=== PATIENT | male | born 1960 | race Caucasian/White ===

== ENCOUNTER 2021-04-06 10:06 | Day surgery (SDC) | payer MEDICARE, OTHER ==
[2021-04-03 12:12] VITALS: BMI 28.7
[~2021-04-06 10:06] MED LIST: ALPRAZolam 0.25 MG TAB PO PRN; ALPRAZolam 0.5 MG TAB PO PRN; ASPIRIN 325 MG TAB PO STA; ATORVASTATIN 80 MG TAB PO STA; HEPARIN SODIUM,PORCINE 10,000 UNIT in SODIUM CHLORIDE 0.9% 1,000 ML IRRIGATION PRN; HEPARIN SODIUM,PORCINE 2,500 UNIT in SODIUM CHLORIDE 0.9% 250 ML IRRIGATION PRN; NITROGLYCERIN SL TABS 0.4 MG TAB SUBLINGUAL PRN
[2021-04-06] MEDS ORDERED: SODIUM CHLORIDE 0.9% 100 ML IV ONE (10:34)
[2021-04-06 10:50] LABS: Glucose,Whole Blood 159 mg/dL (75-99)
[2021-04-06 10:57] LABS: Basophils # (A) 0.1 k/uL (0-0.2); Basophils % (A) 1 %; Eosinophils # (A) 0.3 k/uL (0-0.7); Eosinophils % (A) 3 %; HCT 48.5 % (39.0-53.0); HGB 17.2 gm/dL (13.0-17.5); Lymphocytes # (A) 3.1 k/uL (1.0-4.8); Lymphocytes % (A) 27 %; MCH 29.5 pg (25.0-35.0); MCHC 35.5 g/dL (31.0-37.0); MCV 83.3 fL (80.0-100.0); Mean Platelet Volume 7.4; Monocytes # (A) 0.8 k/uL (0-1.0); Monocytes % (A) 7 %; Neutrophils % (A) 61 %; Platelet Count 377 k/uL (150-450); RBC 5.82 m/uL (4.30-5.90); RDW 11.8 % (11.5-15.5); WBC 11.4 k/uL (3.8-10.6)
[2021-04-06 11:07] LABS: African American GFR (CKD) >90 (>60 ml/min/1.73 sqM); Anion Gap 10 mmol/L; Blood Urea Nitrogen 13 mg/dL (9-20); Calcium 9.8 mg/dL (8.4-10.2); Carbon Dioxide 24 mmol/L (22-30); Chloride 105 mmol/L (98-107); Glucose 170 mg/dL (74-99); Non-African American GFR(CKD) >90 (>60 ml/min/1.73 sqM); Potassium 4.4 mmol/L (3.5-5.1); Sodium 139 mmol/L (137-145)
[2021-04-06] MEDS ORDERED: LIDOCAINE 1% INJ 10MG/ML (20 ML MDV) ONE (12:34)
[2021-04-06] MEDS ORDERED: fentaNYL (PF) 50 MCG/ML 5 ML AMP IV ONE (13:03)
[2021-04-06] MEDS ORDERED: MIDAZOLAM 2 MG/2 ML VIAL IV ONE (13:03)
[2021-04-06] MEDS ORDERED: LIDOCAINE 1% INJ 10MG/ML (20 ML MDV) SQ ONE (13:06)
[2021-04-06] MEDS ORDERED: IV FLUID CONTINUATION 600 ML IV ONE (13:06)
[2021-04-06] MEDS ORDERED: IOPAMIDOL-370 125ML BTL INJ ONE (13:27)
[2021-04-06] MEDS ORDERED: RX INFO: IV CONTRAST WAS GIVEN 1 EACH MISC MISCELLANE PRN (13:39)
[2021-04-06] MEDS: SODIUM CHLORIDE 0.9% 1,000 ML IV SCH (13:40)
--- NOTE | 2021-04-06 13:49 | P.CARDCATH ---
Date of Procedure: 04/06/21 Postoperative Diagnosis: Progressive angina Procedure(s) Performed: Left heart catheterization with selective coronary arteriography and selective injection of the GOULD graft and 3 vein grafts. No LV gram Description of Procedure: HISTORY: This is a 60-year-old gentleman with history of previous bypass surgery with was quadruple bypass done at [facility]. Patient presents office with complaints of recurrence of chest pain reminiscent of the pains he had prior to the wrist bypass. Nuclear stress test showed a fixed defect in inferior wall. Patient is advised to have a cardiac catheterization for definitive diagnosis CONSENT:I have discussed the risks, benefits and alternative therapies for the above-mentioned procedure and for both sedation/analgesia as well as necessary blood product administration, if indicated, as they pertain to this patient. The patient has indicated understanding and acceptance of the risks and procedures discussed. PROCEDURE: Patient was brought to the lab in a fasting state. Patient was given some IV sedation. The right groin is infiltrated with lidocaine and right femoral artery was entered using Seldinger technique. A 6-Ecuadorean catheter was left in place and selective coronary arteriography and selective injection of the GOULD graft and 3 vein grafts was performed. Patient tolerated the procedure well. Femoral angiogram was performed and manual compression was applied for hemostasis. Angio-Seal was done because of the diffuse disease in the femoral artery. No immediate complications were noted and patient was transferred to [facility] in a stable condition Conscious Sedation: Versed 1mg Fentanyl 50 g Duration 27minutes HEMODYNAMICS: The aortic pressure is about 120/70. Left ventricular end- diastolic pressure was not measured SELECTIVE CORONARY ARTERIOGRAPHY: LEFT MAIN: Normal length and free of any occlusive disease THE LEFT ANTERIOR DESCENDING CORONARY ARTERY:. This is totally occluded after a small diagonal branch THE LEFT CIRCUMFLEX AND IS CORONARY ARTERY:. This is totally occluded in midportion. There is total occlusion of the OM branch also THE RIGHT CORONARY ARTERY:. This is totally occluded in midportion. THE GOULD GRAFT TO THE LAD: This is patent at the proximal and distal anastomosis and throughout its length. The LAD beyond the insertion site shows diffuse plaque without any significant focal lesion. 9 THE VEIN GRAFT TO THE CIRCUMFLEX. This is patent at the proximal and distal anastomosis and also throughout its body. The distal circumflex beyond the insertion of the graft, appears to be free of occlusive disease. The vein graft to the RIGHT CORONARY ARTERY: This is patent at the proximal and distal anastomosis. The distal right coronary artery appears to be small but free of any significant occlusive disease. The vein graft to the INTERMEDIATE OR DIAGONAL: This is totally occluded in the proximal anastomosis site LEFT VENTRICULOGRAPHY This is not performed FINAL IMPRESSION: Patent GOULD graft to the LAD and vein graft to the distal circumflex and also distal right coronary artery. Third vein graft to the to the diagonal or intermediate is totally blocked. PLAN: Continued medical therapy and this factor modification PROGNOSIS: Fair
[2021-04-06] MEDS ORDERED: ACETAMINOPHEN TAB 500 MG TAB PO PRN (16:05)
[2021-04-06] MEDS: INSULIN ASPART (NovoLOG) 100 UNIT/ML VIAL SQ SCH ×3 (16:22→20:56)
[2021-04-06 17:18] LABS: Glucose,Whole Blood 163 mg/dL (75-99)
[2021-04-06] MEDS: SODIUM CHLORIDE 0.9% 1,000 ML in EMPTY BAG 1 BAG IV SCH ×2 (18:04→18:05)
[2021-04-06 20:31] LABS: Glucose,Whole Blood 170 mg/dL (75-99)
[2021-04-06] MEDS ORDERED: traZODone HCL 50 MG TAB PO SCH (21:00)
[2021-04-06] MEDS: BALSALAZIDE DISODIUM 750 MG CAPSULE PO SCH (21:02)
[2021-04-06] MEDS: METOPROLOL TARTRATE 12.5 MG TAB PO SCH (21:02)
[2021-04-07] MEDS: SODIUM CHLORIDE 0.9% 1,000 ML IV SCH (04:16)
[2021-04-07] MEDS: SODIUM CHLORIDE 0.9% 1,000 ML in EMPTY BAG 1 BAG IV SCH (04:21)
[2021-04-07 07:16] VITALS: BP 139/78; PULSE 64; RESP 18; TEMP 97
[2021-04-07 08:12] LABS: Glucose,Whole Blood 155 mg/dL (75-99)
[2021-04-07] MEDS: INSULIN ASPART (NovoLOG) 100 UNIT/ML VIAL SQ SCH (08:22)
[2021-04-07] MEDS: METOPROLOL TARTRATE 12.5 MG TAB PO SCH (08:29)
[2021-04-07] MEDS: BALSALAZIDE DISODIUM 750 MG CAPSULE PO SCH (08:30)
[2021-04-07] MEDS ORDERED: ASPIRIN 81 MG PO SCH (09:00)
[2021-04-07] MEDS ORDERED: lisinopriL 5 MG TAB PO SCH (09:00)
[2021-04-07] MEDS ORDERED: CHOLECALCIFEROL 25 MCG (1000 IU) TABLET PO SCH (09:00)
[2021-04-07] MEDS ORDERED: LINAGLIPTIN 5 MG TABLET PO SCH (09:00)
[2021-04-07] MEDS ORDERED: ISOSORBIDE MONONITRATE ER 30 MG TAB.ER.24H PO SCH (09:00)
[2021-04-07] MEDS ORDERED: ATORVASTATIN 40 MG TAB PO SCH (09:00)
[2021-04-07] MEDS ORDERED: NON FORMULARY DRUG (Omega-3 Fatty Acids/Fish Oil [Fish Oil 1,000 Mg Softgel] 1 EACH Capsul PO SCH (09:00)
== END 2021-04-07 09:06 | disposition home or self-care (01) ==
LOC: CATHCVL 10:06 → 6NMEDSUR 13:31 → CATHCVL 04-07 09:06
PROVIDERS: ATTEND Internal Medicine Cardiovascular Disease
DX: I25.119 Atherosclerotic heart disease of native coronary artery with unspecified angina pectoris (principal); I25.719 Atherosclerosis of autologous vein coronary artery bypass graft(s) with unspecified angina pectoris; I25.82 Chronic total occlusion of coronary artery; I10 Essential (primary) hypertension; F17.210 Nicotine dependence, cigarettes, uncomplicated; E78.5 Hyperlipidemia, unspecified; Z82.49 Family history of ischemic heart disease and other diseases of the circulatory system; Z20.822 Contact with and (suspected) exposure to COVID-19; Z79.899 Other long term (current) drug therapy; Z79.82 Long term (current) use of aspirin
CPT/HCPCS: 93455; 80048; 85025; 87635; C1894; C1769 ×2; J2250; J2001; J3010; Q9967

== ENCOUNTER → 2021-07-03 | Outpatient (CLI) | payer MEDICARE, OTHER | END | disposition home or self-care (01) | LOC: LABWHC1 10:44 | PROVIDERS: ATTEND Orthopaedic Surgery | DX: M25.551 Pain in right hip (principal); Z96.641 Presence of right artificial hip joint; M25.552 Pain in left hip | CPT/HCPCS: 36415; 85379; 85652; 86140 ==

== ENCOUNTER 2021-07-10 08:58 | Day surgery (SDC) | payer MEDICARE, OTHER ==
[2021-07-09 13:35] VITALS: BMI 27.2
[~2021-07-10 08:58] MED LIST changes: -ALPRAZolam 0.25 MG TAB PO PRN; -ALPRAZolam 0.5 MG TAB PO PRN; -ASPIRIN 325 MG TAB PO STA; -ATORVASTATIN 80 MG TAB PO STA; -HEPARIN SODIUM,PORCINE 10,000 UNIT in SODIUM CHLORIDE 0.9% 1,000 ML IRRIGATION PRN; -HEPARIN SODIUM,PORCINE 2,500 UNIT in SODIUM CHLORIDE 0.9% 250 ML IRRIGATION PRN; +LACTATED RINGERS 1,000 ML IV SCH; -NITROGLYCERIN SL TABS 0.4 MG TAB SUBLINGUAL PRN
[2021-07-10 09:39] VITALS: TEMP 97.4
[2021-07-10 09:53] LABS: Glucose,Whole Blood 175 mg/dL (75-99)
[2021-07-10] MEDS ORDERED: PROPOFOL 10 MG/ML 20 ML VIAL IV ONE (10:31)
--- NOTE | 2021-07-10 10:59 | P.PCN ---
Date of Procedure: 07/10/21 Preoperative Diagnosis: Screening for colon cancer History of ulcerative colitis Postoperative Diagnosis: Ulcerative colitis Procedure(s) Performed: Colonoscopy with biopsy Anesthesia: MAC Surgeon: Gisela Hernández Pathology: other (Biopsies of cecum, ascending colon, hepatic flexure, transverse colon, descending colon, sigmoid colon, rectum) Condition: stable Disposition: same day Indications for Procedure: 52-year-old male presents today for screening colonoscopy. His last cholesterol was approximately 3 years ago and he was diagnosed with ulcerative colitis. He does take Asacol as an outpatient for maintenance. Operative Findings: Appearance of active colitis in the sigmoid colon and rectum Description of Procedure: The patient was brought to the endoscopy suite and placed in left lateral decubitus position and adequate sedation was achieved using conscious sedation. A digital rectal exam was performed and mild internal hemorrhoids palpated. An endoscope was then placed in the rectum and advanced to the cecum as identified by landmarks including the appendiceal orifice and the ileocecal valve. The prep was good. The colonoscope was then slowly withdrawn, examining for any mucosal abnormalities. The cecum, ascending, transverse, descending and sigmoid colon were visualized adequately. There were no obvious neoplastic lesions throughout the colon. Inflammatory changes were noted throughout the colon. Biopsies of the cecum, ascending, hepatic flexure, transverse colon, descending colon and sigmoid colon were taken along with the rectum. Most inflammation was noted in the sigmoid colon and rectum. No significant active bleeding. Retroflexion was performed in the rectum and internal hemorrhoids were visible. Excess air was removed, the colonoscope withdrawn and the procedure terminated. The patient was then transferred to the recovery unit in stable condition. Referral will be set for gastroenterology for continued maintenance. Repeat colonoscopy should be performed in 3 years.
[2021-07-10 11:24] VITALS: BP 121/75; PULSE 74; RESP 18
== END 2021-07-10 11:42 | disposition home or self-care (01) ==
LOC: ORWHC2ENDO 08:58
PROVIDERS: ATTEND Surgery
DX: Z12.11 Encounter for screening for malignant neoplasm of colon (principal); K52.9 Noninfective gastroenteritis and colitis, unspecified; K64.8 Other hemorrhoids; Z80.0 Family history of malignant neoplasm of digestive organs; M19.93 Secondary osteoarthritis, unspecified site; E11.9 Type 2 diabetes mellitus without complications; Z96.651 Presence of right artificial knee joint; Z95.1 Presence of aortocoronary bypass graft; Z79.82 Long term (current) use of aspirin; I25.10 Atherosclerotic heart disease of native coronary artery without angina pectoris; I10 Essential (primary) hypertension; E78.5 Hyperlipidemia, unspecified; Z79.4 Long term (current) use of insulin; Z79.899 Other long term (current) drug therapy
CPT/HCPCS: 88305; 45380; J2704

== ENCOUNTER → 2021-07-13 | Outpatient (CLI) | payer MEDICARE, OTHER ==
--- NOTE | 2021-07-13 11:16 | XR ---
EXAMINATION TYPE: XR chest 2V DATE OF EXAM: 07/13/2021 COMPARISON: NONE HISTORY: Shortness of breath TECHNIQUE: Frontal and lateral views of the chest are obtained. FINDINGS: Scattered senescent parenchymal changes noted. Hyperinflation compatible with COPD. No evidence for infiltrate. No evidence for atelectasis. Heart size is stable. Mediastinal structures are stable and grossly unremarkable. No evidence for hilar prominence. Degenerative changes dorsal spine. IMPRESSION: 1. No evidence for acute pulmonary disease.
== END | disposition home or self-care (01) ==
LOC: RADXRMAIN 10:44
PROVIDERS: ATTEND Orthopaedic Surgery Sports Medicine
DX: Z18.10 Retained metal fragments, unspecified (principal)
CPT/HCPCS: 71046

== ENCOUNTER 2021-07-27 12:58 | Day surgery (SDC) | payer MEDICARE, OTHER ==
[2021-07-27 13:22] VITALS: TEMP 97.8
[2021-07-27 15:56] VITALS: RESP 16
[2021-07-27 15:57] VITALS: BP 136/78; PULSE 84
--- NOTE | 2021-07-27 19:07 | US ---
EXAMINATION TYPE: US guided aspiration major joint, right hip Date: 07/27/2021 History: 60-year-old male with history of right total hip arthroplasty in 2014 with new pain since be ginning of this year and elevated inflammatory markers. Procedure: 1. Ultrasound of the right hip 2. Percutaneous aspiration prosthetic right hip joint Technique: The procedure, risks, and alternatives, were discussed with the patient, who requested dillon t we proceed. The consent form was signed, and teach-back occurred. The site/side of the procedure wa s marked with a line with participation by the patient. The accompanying paperwork was verified for c onsistency. A directed history and physical exam was performed prior to the procedure. Medication rec onciliation was performed by ancillary personnel. A critical pause was performed with assisting christ ríos just prior to the procedure and the patient's identity was confirmed using 2 identifiers. Imagin g guidance was utilized to select the precise skin entry point just prior to the procedure. The right hip was prepped and draped in the usual sterile fashion and local 1% lidocaine anesthesia w as instilled. Under ultrasound guidance, an 18 gauge spinal needle was introduced into the prosthetic right hip joint with tip placed at the prosthetic head neck junction. Ultrasound confirmed the posit ion of the needle tip. Aspiration yielded a total of 2 mL clear yellow thick fluid which was capped, labeled, and sent for the requested laboratory analysis. The needle was removed, hemostasis obtained, and a dressing placed. The patient tolerated the procedu re well. A post-procedure note was placed into the medical record. There were no immediate complications. Afte r the procedure, the patient's condition was unchanged. Estimated blood loss was minimal. The patient was instructed on routine postprocedure precautions. IMPRESSION: Successful ultrasound guided prosthetic right hip joint aspiration yielding 2 mL's of syrupy, clear y ellow fluid.
[2021-07-28 05:04] LABS: Appearance,BF Cloudy
== END 2021-07-27 14:45 | disposition home or self-care (01) ==
LOC: RADPROMAIN 12:58
PROVIDERS: ATTEND Orthopaedic Surgery
DX: M25.551 Pain in right hip (principal); Z96.641 Presence of right artificial hip joint
CPT/HCPCS: 20611; 87070; 87075; 87102; 87205; 89050

== ENCOUNTER 2021-09-28 19:12 | Inpatient (IN) | payer MEDICARE, OTHER ==
[2021-09-28] MEDS ORDERED: MORPHINE SULFATE 4 MG/ML SYRINGE IV STA (19:36)
[2021-09-28] MEDS ORDERED: ONDANSETRON 4 MG/2 ML VIAL IVP STA (19:36)
[2021-09-28] MEDS ORDERED: SODIUM CHLORIDE 0.9% 1,000 ML IV ONE ×2 (19:37→22:00)
--- NOTE | 2021-09-28 19:40 | ED ---
Abdominal Pain HPI - General Stated Complaint: abd pain Time Seen by Provider: 09/28/21 19:28 Source: RN notes reviewed - History of Present Illness Initial Comments: This is a pleasant 61-year-old male with history of cardiac disease, diabetes mellitus, hyperlipidemia. Patient also states she has a history of colitis.Patient presents today after waking up from a nap at about 2 PM. Patient states he started having sharp, crampy, intermittent abdominal pain, central abdomen, associated with several episodes of vomiting. No hematemesis or coffee-ground emesis. No changes in bowel movements. Patient does have a history of colitis. He started having any fever. He denies any alcohol intake. He occasionally takes NSAIDs. No chest pain or shortness of breath. No testicular pain. No back pain. Pain is not radiating. There are no alleviating or exacerbating factors. MD Complaint: abdominal pain - Related Data Home Medications Medication Instructions Recorded Confirmed Aspirin [Adult Low Dose Aspirin EC] 81 mg PO DAILY 04/03/21 09/28/21 Atorvastatin [Lipitor] 40 mg PO DAILY 04/03/21 09/28/21 Cholecalciferol [Vitamin D3 (25 25 mcg PO DAILY 04/03/21 09/28/21 Mcg = 1000 Iu)] Sterling-3 Fatty Acids/Fish Oil [Fish 1 cap PO BID 04/03/21 09/28/21 Oil 1,000 mg Softgel] lisinopriL [Zestril] 5 mg PO HS 04/03/21 09/28/21 traZODone HCL 150 mg PO HS 04/03/21 09/28/21 Empagliflozin/Metformin HCl 1 tab PO HS 07/21/21 09/28/21 [Synjardy 12.5-500 mg Tablet] Acetaminophen-Codeine 300-30mg 1 tab PO Q6H PRN 09/28/21 09/28/21 [Tylenol w/codeine #3] Insulin Aspart [NovoLOG Flexpen] See Protocol SQ TID-W/MEALS PRN 09/28/21 09/28/21 Mesalamine 800 mg PO TID 09/28/21 09/28/21 QUEtiapine [SEROquel] 100 mg PO HS 09/28/21 09/28/21 Previous Rx's Medication Instructions Recorded Isosorbide Mononitrate ER [Imdur] 30 mg PO DAILY #30 tab 04/06/21 Allergies Allergy/AdvReac Type Severity Reaction Status Date / Time No Known Allergies Allergy Verified 09/28/21 21:55 Review of Systems ROS Statement: Those systems with pertinent positive or pertinent negative responses have been documented in the HPI. ROS Other: All systems not noted in ROS Statement are negative. Past Medical History Past Medical History: Diabetes Mellitus, Hyperlipidemia, Hypertension Additional Past Medical History / Comment(s): ulcerative colitis History of Any Multi-Drug Resistant Organisms: None Reported Past Surgical History: Coronary Bypass/CABG, Heart Catheterization, Joint Replacement Additional Past Surgical History / Comment(s): quadruple bypass 2016,. rt hip replacement, left Shoulder steriod injections, right hip pain with difficulty walking, pain radiates to back Past Anesthesia/Blood Transfusion Reactions: No Reported Reaction, Motion Sickness Past Psychological History: No Psychological Hx Reported Smoking Status: Former smoker Past Alcohol Use History: None Reported Past Drug Use History: None Reported - Past Family History Mother Family Medical History: Osteoarthritis (OA) General Exam - General Exam Comments Initial Comments: Vital signs reviewed, patient noted to be tachycardic. Capillary refill less than 2 seconds General appearance: in distress Head exam: Present: atraumatic, normocephalic, normal inspection Eye exam: Present: normal appearance, PERRL, EOMI. Absent: scleral icterus, conjunctival injection, periorbital swelling ENT exam: Present: normal exam, normal oropharynx, mucous membranes moist, normal external ear exam. Absent: mucous membranes dry Neck exam: Present: normal inspection, full ROM. Absent: tenderness, meningismus, lymphadenopathy Respiratory exam: Present: normal lung sounds bilaterally. Absent: respiratory distress, wheezes, rales, rhonchi, stridor Cardiovascular Exam: Present: normal rhythm, tachycardia, normal heart sounds. Absent: systolic murmur, diastolic murmur, rubs, gallop, clicks GI/Abdominal exam: Present: distended, tenderness, guarding, normal bowel sounds, other (Patient has mild distention. Generalized tenderness to palpation. There is guarding.). Absent: rebound, rigid Extremities exam: Present: normal inspection, full ROM, normal capillary refill. Absent: tenderness, pedal edema, joint swelling, calf tenderness Back exam: Present: normal inspection Neurological exam: Present: alert, oriented X3, CN II-XII intact Psychiatric exam: Present: normal affect, normal mood Skin exam: Present: warm, dry, intact, normal color. Absent: rash Course Vital Signs 09/28/21 09/28/21 09/29/21 19:31 23:58 06:15 Temperature 98.1 F 98.4 F Pulse Rate 130 H 84 88 Respiratory 20 18 18 Rate Blood Pressure 131/81 108/80 116/68 O2 Sat by Pulse 98 98 98 Oximetry - Reevaluation(s) Reevaluation #1: 09/28/21 21:17 Medical record is reviewed Symptoms minimally better after pain medication. Patient is informed of results and questions answered Patient in no distress The case was discussed in detail with ED attending physician. Presentation, findings, treatment plan discussed in detail. Plan to cover the patient with Zosyn based on his initial laboratory findings, elevated white blood cell count, elevated neutrophil count, hemoconcentration, and lactic acid of 4.3. - Consultations Consultation #1: Patient admitted to Dr. cantu. Discussed case with Dr. Fraga Procedures - Sepsis Sepsis Focused Exam #1 Time Sepsis Criteria Met: 20:46 Sepsis Focused Exam Date: 09/28/21 Sepsis Focused Exam Time: 20:46 Sepsis Focused Exam Complete: Yes Vital Signs & RN Notes Reviewed: Yes Capillary Refill: < 2 Seconds: Fingers, Toes Peripheral Pulses: Strong: Radial (R), Radial (L), Posterior Tibialis (R), Posterior Tibialis (L), Dorsalis Pedis (R), Dorsalis Pedis (L) Skin Color: Normal for Patient Respiratory Exam: normal lung sounds Cardiovascular Exam: regular rate Medical Decision Making - Medical Decision Making She presents with abdominal pain, started after 2 PM. Several episodes of vomiting. Significant pain with tachycardia. Differential would include small bowel obstruction, bowel perforation, less likely to be infectious etiology given the onset. Does not appear to be consistent with vascular etiology. Not consistent with a cardiovascular etiology. Does not appear to be urinogenital in nature. Patient was admitted to medicine with surgical consultation. Discussed the case with the on-call surgeon. Bleeding lactic acid is related to dehydration with only remote possibility of sepsis. Patient did receive antibiotics, Zosyn, here in the ER. Computed tomography scan was negative for acute pathology. This was also reviewed by the on-call surgeon. The case was discussed in detail with ED attending physician. Presentation, findings, treatment plan discussed in detail. Supervising physician is Dr. Nelson - Lab Data Result diagrams: 09/29/21 05:51 09/29/21 05:51 Lab Results 09/28/21 09/28/21 09/28/21 Range/Units 14:20 20:08 20:08 WBC 15.8 H (3.8-10.6) k/uL RBC 6.86 H (4.30-5.90) m/uL Hgb 19.3 H* (13.0-17.5) gm/dL Hct 58.6 H* (39.0-53.0) % MCV 85.5 (80.0-100.0) fL MCH 28.1 (25.0-35.0) pg MCHC 32.9 (31.0-37.0) g/dL RDW 14.4 (11.5-15.5) % Plt Count 344 (150-450) k/uL MPV 8.1 Neutrophils % 83 % Lymphocytes % 8 % Monocytes % 7 % Eosinophils % 1 % Basophils % 1 % Neutrophils # 13.1 H (1.3-7.7) k/uL Lymphocytes # 1.2 (1.0-4.8) k/uL Monocytes # 1.0 (0-1.0) k/uL Eosinophils # 0.2 (0-0.7) k/uL Basophils # 0.1 (0-0.2) k/uL PT 10.6 (9.0-12.0) sec INR 1.0 (<1.2) APTT 22.9 (22.0-30.0) sec Sodium (137-145) mmol/L Potassium (3.5-5.1) mmol/L Chloride (98-107) mmol/L Carbon Dioxide (22-30) mmol/L Anion Gap mmol/L BUN (9-20) mg/dL Creatinine (0.66-1.25) mg/dL Est GFR (CKD-EPI)AfAm (>60 ml/min/1.73 sqM) Est GFR (CKD-EPI)NonAf (>60 ml/min/1.73 sqM) Glucose (74-99) mg/dL Lactic Ac Sepsis Rflx Plasma Lactic Acid Edward (0.7-2.0) mmol/L Calcium (8.4-10.2) mg/dL Total Bilirubin (0.2-1.3) mg/dL AST (17-59) U/L ALT (4-49) U/L Alkaline Phosphatase (38-126) U/L Troponin I (0.000-0.034) ng/mL Total Protein (6.3-8.2) g/dL Albumin (3.5-5.0) g/dL Amylase (30-110) U/L Lipase (23-300) U/L Urine Color Yellow Urine Appearance Clear (Clear) Urine pH 5.0 (5.0-8.0) Ur Specific [place] 1.039 H (1.001-1.035) Urine Protein Negative (Negative) Urine Glucose (UA) 4+ H (Negative) Urine Ketones 1+ H (Negative) Urine Blood Negative (Negative) Urine Nitrite Negative (Negative) Urine Bilirubin Negative (Negative) Urine Urobilinogen <2.0 (<2.0) mg/dL Ur Leukocyte Esterase Negative (Negative) 09/28/21 09/28/21 09/28/21 Range/Units 20:08 20:08 20:08 WBC (3.8-10.6) k/uL RBC (4.30-5.90) m/uL Hgb (13.0-17.5) gm/dL Hct (39.0-53.0) % MCV (80.0-100.0) fL MCH (25.0-35.0) pg MCHC (31.0-37.0) g/dL RDW (11.5-15.5) % Plt Count (150-450) k/uL MPV Neutrophils % % Lymphocytes % % Monocytes % % Eosinophils % % Basophils % % Neutrophils # (1.3-7.7) k/uL Lymphocytes # (1.0-4.8) k/uL Monocytes # (0-1.0) k/uL Eosinophils # (0-0.7) k/uL Basophils # (0-0.2) k/uL PT (9.0-12.0) sec INR (<1.2) APTT (22.0-30.0) sec Sodium 142 (137-145) mmol/L Potassium 4.3 (3.5-5.1) mmol/L Chloride 99 (98-107) mmol/L Carbon Dioxide 24 (22-30) mmol/L Anion Gap 19 mmol/L BUN 17 (9-20) mg/dL Creatinine 1.18 (0.66-1.25) mg/dL Est GFR (CKD-EPI)AfAm 78 (>60 ml/min/1.73 sqM) Est GFR (CKD-EPI)NonAf 67 (>60 ml/min/1.73 sqM) Glucose 213 H (74-99) mg/dL Lactic Ac Sepsis Rflx Plasma Lactic Acid Edward 4.3 H* (0.7-2.0) mmol/L Calcium 10.5 H (8.4-10.2) mg/dL Total Bilirubin 1.0 (0.2-1.3) mg/dL AST 36 (17-59) U/L ALT 27 (4-49) U/L Alkaline Phosphatase 142 H (38-126) U/L Troponin I <0.012 (0.000-0.034) ng/mL Total Protein 8.4 H (6.3-8.2) g/dL Albumin 5.3 H (3.5-5.0) g/dL Amylase 65 (30-110) U/L Lipase 95 (23-300) U/L Urine Color Urine Appearance (Clear) Urine pH (5.0-8.0) Ur Specific [place] (1.001-1.035) Urine Protein (Negative) Urine Glucose (UA) (Negative) Urine Ketones (Negative) Urine Blood (Negative) Urine Nitrite (Negative) Urine Bilirubin (Negative) Urine Urobilinogen (<2.0) mg/dL Ur Leukocyte Esterase (Negative) 09/28/21 Range/Units 20:47 WBC (3.8-10.6) k/uL RBC (4.30-5.90) m/uL Hgb (13.0-17.5) gm/dL Hct (39.0-53.0) % MCV (80.0-100.0) fL MCH (25.0-35.0) pg MCHC (31.0-37.0) g/dL RDW (11.5-15.5) % Plt Count (150-450) k/uL MPV Neutrophils % % Lymphocytes % % Monocytes % % Eosinophils % % Basophils % % Neutrophils # (1.3-7.7) k/uL Lymphocytes # (1.0-4.8) k/uL Monocytes # (0-1.0) k/uL Eosinophils # (0-0.7) k/uL Basophils # (0-0.2) k/uL PT (9.0-12.0) sec INR (<1.2) APTT (22.0-30.0) sec Sodium (137-145) mmol/L Potassium (3.5-5.1) mmol/L Chloride (98-107) mmol/L Carbon Dioxide (22-30) mmol/L Anion Gap mmol/L BUN (9-20) mg/dL Creatinine (0.66-1.25) mg/dL Est GFR (CKD-EPI)AfAm (>60 ml/min/1.73 sqM) Est GFR (CKD-EPI)NonAf (>60 ml/min/1.73 sqM) Glucose (74-99) mg/dL Lactic Ac Sepsis Rflx Y Plasma Lactic Acid Edward (0.7-2.0) mmol/L Calcium (8.4-10.2) mg/dL Total Bilirubin (0.2-1.3) mg/dL AST (17-59) U/L ALT (4-49) U/L Alkaline Phosphatase (38-126) U/L Troponin I (0.000-0.034) ng/mL Total Protein (6.3-8.2) g/dL Albumin (3.5-5.0) g/dL Amylase (30-110) U/L Lipase (23-300) U/L Urine Color Urine Appearance (Clear) Urine pH (5.0-8.0) Ur Specific [place] (1.001-1.035) Urine Protein (Negative) Urine Glucose (UA) (Negative) Urine Ketones (Negative) Urine Blood (Negative) Urine Nitrite (Negative) Urine Bilirubin (Negative) Urine Urobilinogen (<2.0) mg/dL Ur Leukocyte Esterase (Negative) - EKG Data EKG Comments: EKG done at 2100 and reviewed with ED attending physician does mention ST elevation in the computerized interpretation. However does not appear to be consistent with this. Patient does have what appears to be negative deflection of the CO interval, noted in lead 2 and to lesser strength in lead 3. No other significant changes. Patient does have RSR pattern in V1. Normal axis. Rate of 106. No evidence of acute ST elevation or depression. Read by Dr. Nelson Critical Care Time Critical Care Time: Yes (35) Critical Care Time: Criteria for severe sepsis, severe dehydration, hemoconcentration, discussed with specialist. Reevaluation of present mentation and response to treatment. Evaluation diagnostic testing. Disposition Clinical Impression: Abdominal pain, Severe sepsis, Severe dehydration, Lactic acidosis Disposition: ADMITTED IP TO THIS [facility] Condition: Fair Time of Disposition: 22:06 Decision to Admit Reason: Admit from EC Decision Time: 22:06
--- NOTE | 2021-09-28 20:06 | XR ---
EXAMINATION TYPE: XR chest 1V portable DATE OF EXAM: 09/28/2021 COMPARISON: 07/13/2021 HISTORY: Abdominal pain TECHNIQUE: Single view FINDINGS: There is no heart failure nor confluent pneumonic infiltrate. There are sternal wires. Cost ophrenic angles are clear. There is slight coarsening of the lung markings. IMPRESSION: Mild pulmonary fibrotic changes. No acute lung disease. No change compared to old exam.
[2021-09-28 20:34] LABS: Albumin 5.3 g/dL (3.5-5.0); Calcium 10.5 mg/dL (8.4-10.2); Potassium 4.3 mmol/L (3.5-5.1); Total Protein 8.4 g/dL (6.3-8.2)
[2021-09-28 20:55] LABS: Partial Thromboplastin Time 22.9 sec (22.0-30.0); Prothrombin Time 10.6 sec (9.0-12.0)
[2021-09-28 21:03] LABS: Basophils # (A) 0.1 k/uL (0-0.2); Basophils % (A) 1 %; Eosinophils # (A) 0.2 k/uL (0-0.7); Eosinophils % (A) 1 %; Lymphocytes # (A) 1.2 k/uL (1.0-4.8); Lymphocytes % (A) 8 %; MCH 28.1 pg (25.0-35.0); MCHC 32.9 g/dL (31.0-37.0); MCV 85.5 fL (80.0-100.0); Mean Platelet Volume 8.1; Monocytes % (A) 7 %; Neutrophils # (A) 13.1 k/uL (1.3-7.7); Neutrophils % (A) 83 %; Platelet Count 344 k/uL (150-450); RBC 6.86 m/uL (4.30-5.90); RDW 14.4 % (11.5-15.5); WBC 15.8 k/uL (3.8-10.6)
[2021-09-28 21:06] LABS: HCT 58.6 % (39.0-53.0); HGB 19.3 gm/dL (13.0-17.5)
[2021-09-28] MEDS ORDERED: PIPERACILLIN-TAZOBACTAM 4.5 GM in SODIUM CHLORIDE 0.9% 100 ML IVPB STA (21:12)
[2021-09-28] MEDS ORDERED: MORPHINE SULFATE 4 MG/ML SYRINGE IVP STA (21:50)
--- NOTE | 2021-09-28 21:57 | CT ---
EXAMINATION TYPE: CT abdomen pelvis w con DATE OF EXAM: 09/28/2021 COMPARISON: None HISTORY: Abdominal pain, N/V CT DLP: 1222.7 mGycm Automated exposure control for dose reduction was used. CONTRAST: Performed with IV Contrast, patient injected with 100 mL of Isovue 300. Images obtained from the diaphragm to the floor the pelvis with IV contrast. There is some mild atelectasis at the lung bases. Heart size is normal. No pericardial effusion. No p leural effusion or pneumothorax. Liver spleen pancreas and stomach and gallbladder appear intact. The bile ducts are not dilated. There is no adrenal mass. Kidneys show satisfactory contrast opacification. There is no hydronephrosi s. Delayed images show normal renal excretion. There is no retroperitoneal adenopathy. The bladder di stends smoothly. There is right hip prosthesis. No pelvic mass. No free fluid in the pelvis. Appendix not seen. No sign of thickened appendix. There is no mesenteric edema. No ascites or free air. No bowel obstruction. The lumbar vertebrae have normal alignment. No compression fracture. There is moderate atherosclerotic vascular calcification. The bony pelvis is intact. No focal bone destruction. IMPRESSION: Extensive atherosclerotic vascular calcification for the patient's age. No acute abnormality of the a bdomen and pelvis.
[2021-09-28] MEDS ORDERED: ONDANSETRON 4 MG/2 ML VIAL IVP PRN (22:47)
[2021-09-28] MEDS ORDERED: NALOXONE 0.4 MG/ML 1 ML VIAL IV PRN (22:47)
[2021-09-28] MEDS ORDERED: ACETAMINOPHEN TAB 325 MG TAB PO PRN (22:47)
[2021-09-28] MEDS ORDERED: QUEtiapine 100 MG TAB PO STA (22:51)
[2021-09-28] MEDS: PANTOPRAZOLE 40 MG/10 ML VIAL IV SCH (23:39)
[2021-09-29] MEDS: SODIUM CHLORIDE 0.9% 1,000 ML IV SCH ×3 (00:01→20:18)
[2021-09-29] MEDS: HEPARIN SODIUM,PORCINE/PF 5,000 UNIT/0.5 ML SYRINGE SQ SCH ×4 (00:30→23:48)
[2021-09-29 06:38] LABS: Basophils % (A) 0 %; Eosinophils # (A) 0.1 k/uL (0-0.7); Eosinophils % (A) 1 %; HCT 45.1 % (39.0-53.0); Lymphocytes # (A) 1.5 k/uL (1.0-4.8); Lymphocytes % (A) 17 %; MCH 27.9 pg (25.0-35.0); MCHC 32.6 g/dL (31.0-37.0); MCV 85.6 fL (80.0-100.0); Mean Platelet Volume 7.7; Monocytes # (A) 0.9 k/uL (0-1.0); Monocytes % (A) 11 %; Neutrophils # (A) 5.8 k/uL (1.3-7.7); Neutrophils % (A) 68 %; Platelet Count 255 k/uL (150-450); RBC 5.26 m/uL (4.30-5.90); RDW 14.6 % (11.5-15.5); WBC 8.5 k/uL (3.8-10.6)
[2021-09-29 06:40] LABS: ALT 17 U/L (4-49); AST 21 U/L (17-59); African American GFR (CKD) >90 (>60 ml/min/1.73 sqM); Albumin 3.2 g/dL (3.5-5.0); Alkaline Phosphatase 81 U/L (38-126); Anion Gap 6 mmol/L; Blood Urea Nitrogen 17 mg/dL (9-20); Calcium 8.1 mg/dL (8.4-10.2); Carbon Dioxide 24 mmol/L (22-30); Chloride 108 mmol/L (98-107); Glucose 107 mg/dL (74-99); Lipase 26 U/L (23-300); Non-African American GFR(CKD) >90 (>60 ml/min/1.73 sqM); Potassium 4.3 mmol/L (3.5-5.1); Sodium 138 mmol/L (137-145); Total Bilirubin 0.8 mg/dL (0.2-1.3); Total Protein 5.3 g/dL (6.3-8.2)
[2021-09-29 06:46] LABS: HGB 14.7 gm/dL (13.0-17.5)
[2021-09-29] MEDS ORDERED: PROMETHAZINE 25 MG TAB PO PRN (07:59)
[2021-09-29 08:09] LABS: Glucose,Whole Blood 105 mg/dL (75-99)
[2021-09-29] MEDS: ISOSORBIDE MONONITRATE ER 30 MG TAB.ER.24H PO SCH (08:32)
[2021-09-29] MEDS: ATORVASTATIN 40 MG TAB PO SCH (08:32)
[2021-09-29] MEDS: BALSALAZIDE DISODIUM 750 MG CAPSULE PO SCH ×3 (08:33→21:37)
[2021-09-29] MEDS: PANTOPRAZOLE 40 MG/10 ML VIAL IV SCH (08:33)
[2021-09-29] MEDS: ASPIRIN 81 MG PO SCH (08:33)
[2021-09-29] MEDS: PIPERACILLIN-TAZOBACTAM 3.375 GM in SODIUM CHLORIDE 0.9% 100 ML IVPB SCH ×3 (08:34→23:45)
[2021-09-29] MEDS: INSULIN ASPART (NovoLOG) 100 UNIT/ML VIAL SQ SCH ×4 (08:34→20:57)
--- NOTE | 2021-09-29 11:34 | P.HPIM ---
History of Present Illness This is a pleasant 61 years old male with past medical history of Diabetes Mellitus, Hyperlipidemia, Hypertension, ulcerative colitis, coronary artery disease status post CABG Patient presents because of right lower quadrant abdominal pain of one-day duration, 10 was 10/10 in severity but now improved down to 4-5/10, felt like sharp and throbbing associated with multiple vomiting, no blood which is stopped now. Last time was last night. He had little bowel movement yesterday, basically it's more sore the constipation side. Patient denies chest pain or dyspnea. No dysuria or increased frequency/urgency. She has little headache but no dizziness or weakness or numbness. He smokes few cigarettes occasionally as he states. Patient is counseled. He is declining nicotine patch. No alcohol or illicit tracts. Patient supposed to follow up with orthopedic for scheduled left shoulder surgery on Sunday 10/29. Vitas looks stable. Repeat labs this morning show an unremarkable and normal CBC, INR, BMP and liver enzymes. Lipase as 26. Elevated lactic acid on admission improved to normal at 1.2. EKG showing sinus tachycardia at 106, no significant ST-T changes. QTC 403. Chest x-ray: Mild pulmonary fibrotic changes. No acute pulmonary process. CT of the abdomen and pelvis: Extensive atherosclerotic vascular calcification for the patient's age. No acute abnormality of the abdomen and pelvis. On admission patient was started on normal saline, Zosyn. Also she was started on a Protonix and pain management Check ESR and CRP and they were normal ESR 8 and slightly elevated CRP at 8.7. Review of Systems CONSTITUTIONAL: No fever, no malaise, no fatigue. HEENT: No recent visual problems or hearing problems. Denied any sore throat. CARDIOVASCULAR: No orthopnea, PND, no palpitations, no syncope. PULMONARY: No shortness of breath, no cough, no hemoptysis. GASTROINTESTINAL: No diarrhea, no nausea, no vomiting, no abdominal pain. Normoactive bowel sounds. NEUROLOGICAL: No headaches, no weakness, no numbness. HEMATOLOGICAL: Denies any bleeding or petechiae. GENITOURINARY: Denies any burning micturition, frequency, or urgency. MUSCULOSKELETAL/RHEUMATOLOGICAL: Denies any joint pain, swelling, or any muscle pain. ENDOCRINE: Denies any polyuria or polydipsia. Past Medical History Past Medical History: Diabetes Mellitus, Hyperlipidemia, Hypertension Additional Past Medical History / Comment(s): ulcerative colitis History of Any Multi-Drug Resistant Organisms: None Reported Past Surgical History: Coronary Bypass/CABG, Heart Catheterization, Joint Replacement Additional Past Surgical History / Comment(s): quadruple bypass 2016,. rt hip replacement, left Shoulder steriod injections, right hip pain with difficulty walking, pain radiates to back Past Anesthesia/Blood Transfusion Reactions: No Reported Reaction, Motion Sickness Past Psychological History: No Psychological Hx Reported Smoking Status: Former smoker Past Alcohol Use History: None Reported Past Drug Use History: None Reported - Past Family History Mother Family Medical History: Osteoarthritis (OA) Medications and Allergies Home Medications Medication Instructions Recorded Confirmed Type Aspirin [Adult Low Dose Aspirin EC] 81 mg PO DAILY 04/03/21 09/28/21 History Atorvastatin [Lipitor] 40 mg PO DAILY 04/03/21 09/28/21 History Cholecalciferol [Vitamin D3 (25 25 mcg PO DAILY 04/03/21 09/28/21 History Mcg = 1000 Iu)] [place]-3 Fatty Acids/Fish Oil [Fish 1 cap PO BID 04/03/21 09/28/21 History Oil 1,000 mg Softgel] lisinopriL [Zestril] 5 mg PO HS 04/03/21 09/28/21 History traZODone HCL 150 mg PO HS 04/03/21 09/28/21 History Isosorbide Mononitrate ER [Imdur] 30 mg PO DAILY #30 tab 04/06/21 09/28/21 Rx Empagliflozin/Metformin HCl 1 tab PO HS 07/21/21 09/28/21 History [Synjardy 12.5-500 mg Tablet] Acetaminophen-Codeine 300-30mg 1 tab PO Q6H PRN 09/28/21 09/28/21 History [Tylenol w/codeine #3] Insulin Aspart [NovoLOG Flexpen] See Protocol SQ TID-W/MEALS PRN 09/28/21 09/28/21 History Mesalamine 800 mg PO TID 09/28/21 09/28/21 History QUEtiapine [SEROquel] 100 mg PO HS 09/28/21 09/28/21 History Allergies Allergy/AdvReac Type Severity Reaction Status Date / Time No Known Allergies Allergy Verified 09/28/21 21:55 Physical Exam Vitals: Vital Signs Temp Pulse Resp BP Pulse Ox 09/29/21 06:15 88 18 116/68 98 09/28/21 23:58 98.4 F 84 18 108/80 98 09/28/21 19:31 98.1 F 130 H 20 131/81 98 Intake and Output 09/28/21 09/29/21 09/29/21 22:59 06:59 14:59 Other: Weight 81.647 kg GENERAL: The patient is alert and oriented x3, not in any acute distress. Well developed, well nourished. HEENT: Pupils are round and equally reacting to light. EOMI. No scleral icterus. No conjunctival pallor. Normocephalic, atraumatic. No pharyngeal erythema. No thyromegaly. CARDIOVASCULAR: S1 and S2 present. No murmurs, rubs, or gallops. PULMONARY: Chest is clear to auscultation, no wheezing or crackles. -ABDOMEN: Soft, tenderness right to the umbilicus, no rebound tenderness, nondistended, normoactive bowel sounds. No palpable organomegaly. MUSCULOSKELETAL: No joint swelling or deformity. EXTREMITIES: No cyanosis, clubbing, or pedal edema. NEUROLOGICAL: Gross neurological examination did not reveal any focal deficits. SKIN: No rashes. No petechiae Results CBC & Chem 7: 09/29/21 05:51 09/29/21 05:51 Labs: Abnormal Lab Results - Last 24 Hours (Table) 09/28/21 09/28/21 09/28/21 Range/Units 20:08 20:08 20:08 WBC 15.8 H (3.8-10.6) k/uL RBC 6.86 H (4.30-5.90) m/uL Hgb 19.3 H* (13.0-17.5) gm/dL Hct 58.6 H* (39.0-53.0) % Neutrophils # 13.1 H (1.3-7.7) k/uL Chloride (98-107) mmol/L Glucose 213 H (74-99) mg/dL Plasma Lactic Acid Edward 4.3 H* (0.7-2.0) mmol/L Calcium 10.5 H (8.4-10.2) mg/dL Alkaline Phosphatase 142 H (38-126) U/L Total Protein 8.4 H (6.3-8.2) g/dL Albumin 5.3 H (3.5-5.0) g/dL 09/29/21 Range/Units 05:51 WBC (3.8-10.6) k/uL RBC (4.30-5.90) m/uL Hgb (13.0-17.5) gm/dL Hct (39.0-53.0) % Neutrophils # (1.3-7.7) k/uL Chloride 108 H (98-107) mmol/L Glucose 107 H (74-99) mg/dL Plasma Lactic Acid Edward (0.7-2.0) mmol/L Calcium 8.1 L (8.4-10.2) mg/dL Alkaline Phosphatase (38-126) U/L Total Protein 5.3 L (6.3-8.2) g/dL Albumin 3.2 L (3.5-5.0) g/dL Assessment and Plan Assessment: Abdominal pain History of ulcerative colitis Shoulder pain supposed to undergo surgery on Tuesday Hyperlipidemia Hypertension Diabetes mellitus History of coronary artery disease status post CABG Plan: This is a pleasant 61 years old male who presents with abdominal pain Check pro-calcitonin Surgery team consulted, and follow the recommendation Continue with liquid diet There is no GI team coverage in this facility during this week of service Labs and medication were reviewed.. Continue same treatment. Continue with symptomatic treatment. Resume home medication. Monitor lytes and vitals. DVT and GI prophylaxis. Further recommendations depends on the clinical course of the patient DVT prophylaxis: Subcutaneous heparin GI Prophylaxis: Pepcid PT/OT: Pending Prognosis is guarded
[2021-09-29 13:41] LABS: Glucose,Whole Blood 98 mg/dL (75-99)
[2021-09-29 14:28] LABS: Appearance,Urine Clear (Clear); Bilirubin,Urine Negative (Negative); Blood,Urine Negative (Negative); Color,Urine Yellow; Glucose,Urine (UA) 4+ (Negative); Ketones,Urine 1+ (Negative); Leukocyte Esterase,Urine Negative (Negative); Nitrite,Urine Negative (Negative); Protein,Urine Negative (Negative); Specific Gravity,Urine 1.039 (1.001-1.035); Urobilinogen,Urine <2.0 mg/dL (<2.0)
--- NOTE | 2021-09-29 15:18 | P.GSCN ---
History of Present Illness Consult date: 09/29/21 Reason for Consult: Abdominal pain History of present illness: The patient is a 61-year-old man who presented with acute abdominal pain. It began yesterday. It was sudden onset. Sharp mid abdominal pain. He had some nausea but no vomiting. Bowels have been moving normally. He does have a history of ulcerative colitis but that has not been bothering him lately. Denies blood in the stool or dark tarry stool. Denies fever or chill. Denies recent COVID-19 infection. He was camping over the weekend and no one else was ill. The pain has since resolved. He had clear liquids for lunch which he is tolerating Review of Systems All systems: negative Past Medical History Past Medical History: Diabetes Mellitus, Hyperlipidemia, Hypertension Additional Past Medical History / Comment(s): ulcerative colitis History of Any Multi-Drug Resistant Organisms: None Reported Past Surgical History: Coronary Bypass/CABG, Heart Catheterization, Joint Replacement Additional Past Surgical History / Comment(s): quadruple bypass 2016,. rt hip replacement, left Shoulder steriod injections, right hip pain with difficulty walking, pain radiates to back Past Anesthesia/Blood Transfusion Reactions: No Reported Reaction, Motion Sick ness Past Psychological History: No Psychological Hx Reported Smoking Status: Former smoker Past Alcohol Use History: None Reported Past Drug Use History: None Reported - Past Family History Mother Family Medical History: Osteoarthritis (OA) Medications and Allergies Home Medications Medication Instructions Recorded Confirmed Type Aspirin [Adult Low Dose Aspirin EC] 81 mg PO DAILY 04/03/21 09/28/21 History Atorvastatin [Lipitor] 40 mg PO DAILY 04/03/21 09/28/21 History Cholecalciferol [Vitamin D3 (25 25 mcg PO DAILY 04/03/21 09/28/21 History Mcg = 1000 Iu)] [place]-3 Fatty Acids/Fish Oil [Fish 1 cap PO BID 04/03/21 09/28/21 History Oil 1,000 mg Softgel] lisinopriL [Zestril] 5 mg PO HS 04/03/21 09/28/21 History traZODone HCL 150 mg PO HS 04/03/21 09/28/21 History Isosorbide Mononitrate ER [Imdur] 30 mg PO DAILY #30 tab 04/06/21 09/28/21 Rx Empagliflozin/Metformin HCl 1 tab PO HS 07/21/21 09/28/21 History [Synjardy 12.5-500 mg Tablet] Acetaminophen-Codeine 300-30mg 1 tab PO Q6H PRN 09/28/21 09/28/21 History [Tylenol w/codeine #3] Insulin Aspart [NovoLOG Flexpen] See Protocol SQ TID-W/MEALS PRN 09/28/21 09/28/21 History Mesalamine 800 mg PO TID 09/28/21 09/28/21 History QUEtiapine [SEROquel] 100 mg PO HS 09/28/21 09/28/21 History Allergies Allergy/AdvReac Type Severity Reaction Status Date / Time No Known Allergies Allergy Verified 09/28/21 21:55 Surgical - Exam Osteopathic Statement: *. No significant issues noted on an osteopathic structural exam other than those noted in the History and Physical/Consult. Vital Signs Temp Pulse Resp BP Pulse Ox 98.1 F 130 H 20 131/81 98 09/28/21 19:31 09/28/21 19:31 09/28/21 19:31 09/28/21 19:31 09/28/21 19:31 - General well developed, well nourished - Eyes normal ocular movement - Neck trachea midline - Respiratory normal respiratory effort, clear to auscultation - Cardiovascular Rhythm: regular - Abdomen Abdomen: soft, non tender, bowel sounds, no guarding, no rigid, no rebound, no distended Results - Labs 09/29/21 05:51 09/29/21 05:51 Abnormal Lab Results - Last 24 Hours (Table) 09/28/21 09/28/21 09/28/21 Range/Units 14:20 20:08 20:08 WBC 15.8 H (3.8-10.6) k/uL RBC 6.86 H (4.30-5.90) m/uL Hgb 19.3 H* (13.0-17.5) gm/dL Hct 58.6 H* (39.0-53.0) % Neutrophils # 13.1 H (1.3-7.7) k/uL Chloride (98-107) mmol/L Glucose 213 H (74-99) mg/dL POC Glucose (mg/dL) (75-99) mg/dL Plasma Lactic Acid Edward (0.7-2.0) mmol/L Calcium 10.5 H (8.4-10.2) mg/dL Alkaline Phosphatase 142 H (38-126) U/L C-Reactive Protein (<1.0) mg/dL Total Protein 8.4 H (6.3-8.2) g/dL Albumin 5.3 H (3.5-5.0) g/dL Procalcitonin (0.02-0.09) ng/mL Ur Specific [place] 1.039 H (1.001-1.035) Urine Glucose (UA) 4+ H (Negative) Urine Ketones 1+ H (Negative) 09/28/21 09/29/21 09/29/21 Range/Units 20:08 05:51 08:03 WBC (3.8-10.6) k/uL RBC (4.30-5.90) m/uL Hgb (13.0-17.5) gm/dL Hct (39.0-53.0) % Neutrophils # (1.3-7.7) k/uL Chloride 108 H (98-107) mmol/L Glucose 107 H (74-99) mg/dL POC Glucose (mg/dL) 105 H (75-99) mg/dL Plasma Lactic Acid Edward 4.3 H* (0.7-2.0) mmol/L Calcium 8.1 L (8.4-10.2) mg/dL Alkaline Phosphatase (38-126) U/L C-Reactive Protein (<1.0) mg/dL Total Protein 5.3 L (6.3-8.2) g/dL Albumin 3.2 L (3.5-5.0) g/dL Procalcitonin (0.02-0.09) ng/mL Ur Specific [place] (1.001-1.035) Urine Glucose (UA) (Negative) Urine Ketones (Negative) 09/29/21 09/29/21 Range/Units 08:31 08:31 WBC (3.8-10.6) k/uL RBC (4.30-5.90) m/uL Hgb (13.0-17.5) gm/dL Hct (39.0-53.0) % Neutrophils # (1.3-7.7) k/uL Chloride (98-107) mmol/L Glucose (74-99) mg/dL POC Glucose (mg/dL) (75-99) mg/dL Plasma Lactic Acid Edward (0.7-2.0) mmol/L Calcium (8.4-10.2) mg/dL Alkaline Phosphatase (38-126) U/L C-Reactive Protein 8.7 H (<1.0) mg/dL Total Protein (6.3-8.2) g/dL Albumin (3.5-5.0) g/dL Procalcitonin 8.49 H (0.02-0.09) ng/mL Ur Specific [place] (1.001-1.035) Urine Glucose (UA) (Negative) Urine Ketones (Negative) Diabetes panel 09/28/21 09/29/21 Range/Units 20:08 05:51 Sodium 142 138 (137-145) mmol/L Potassium 4.3 4.3 (3.5-5.1) mmol/L Chloride 99 108 H (98-107) mmol/L Carbon Dioxide 24 24 (22-30) mmol/L BUN 17 17 (9-20) mg/dL Creatinine 1.18 0.79 (0.66-1.25) mg/dL Glucose 213 H 107 H (74-99) mg/dL Calcium 10.5 H 8.1 L (8.4-10.2) mg/dL AST 36 21 (17-59) U/L ALT 27 17 (4-49) U/L Alkaline Phosphatase 142 H 81 (38-126) U/L Total Protein 8.4 H 5.3 L (6.3-8.2) g/dL Albumin 5.3 H 3.2 L (3.5-5.0) g/dL Calcium panel 09/28/21 09/29/21 Range/Units 20:08 05:51 Calcium 10.5 H 8.1 L (8.4-10.2) mg/dL Albumin 5.3 H 3.2 L (3.5-5.0) g/dL Pituitary panel 09/28/21 09/29/21 Range/Units 20:08 05:51 Sodium 142 138 (137-145) mmol/L Potassium 4.3 4.3 (3.5-5.1) mmol/L Chloride 99 108 H (98-107) mmol/L Carbon Dioxide 24 24 (22-30) mmol/L BUN 17 17 (9-20) mg/dL Creatinine 1.18 0.79 (0.66-1.25) mg/dL Glucose 213 H 107 H (74-99) mg/dL Calcium 10.5 H 8.1 L (8.4-10.2) mg/dL Adrenal panel 09/28/21 09/29/21 Range/Units 20:08 05:51 Sodium 142 138 (137-145) mmol/L Potassium 4.3 4.3 (3.5-5.1) mmol/L Chloride 99 108 H (98-107) mmol/L Carbon Dioxide 24 24 (22-30) mmol/L BUN 17 17 (9-20) mg/dL Creatinine 1.18 0.79 (0.66-1.25) mg/dL Glucose 213 H 107 H (74-99) mg/dL Calcium 10.5 H 8.1 L (8.4-10.2) mg/dL Total Bilirubin 1.0 0.8 (0.2-1.3) mg/dL AST 36 21 (17-59) U/L ALT 27 17 (4-49) U/L Alkaline Phosphatase 142 H 81 (38-126) U/L Total Protein 8.4 H 5.3 L (6.3-8.2) g/dL Albumin 5.3 H 3.2 L (3.5-5.0) g/dL - Imaging CT scan - abdomen: report reviewed, image reviewed Assessment and Plan (1) Abdominal pain Current Visit: Yes Status: Acute Code(s): R10.9 - UNSPECIFIED ABDOMINAL PAIN SNOMED Code(s): 70958733 (2) Lactic acidosis Current Visit: Yes Status: Acute Code(s): E87.2 - ACIDOSIS SNOMED Code(s): 72010922 Plan: The patient's symptoms have currently resolved. He has a benign nonsurgical abdomen. Recommend advance his diet. If he is able to tolerate a regular diet he could be discharged home. Questions were encouraged and answered
[2021-09-29 20:15] LABS: Glucose,Whole Blood 129 mg/dL (75-99)
[2021-09-29] MEDS: MORPHINE SULFATE 4 MG/ML SYRINGE IV PRN (21:12)
[2021-09-29] MEDS: traZODone HCL 50 MG TAB PO SCH (21:15)
[2021-09-29] MEDS: lisinopriL 5 MG TAB PO SCH (21:16)
[2021-09-29] MEDS: QUEtiapine 100 MG TAB PO SCH (21:36)
[2021-09-30] MEDS: SODIUM CHLORIDE 0.9% 1,000 ML IV SCH ×3 (00:11→08:44)
[2021-09-30 02:03] LABS: Glucose,Whole Blood 126 mg/dL (75-99)
[2021-09-30] MEDS: MORPHINE SULFATE 4 MG/ML SYRINGE IV PRN ×4 (02:03→14:20)
[2021-09-30 06:06] LABS: Glucose,Whole Blood 127 mg/dL (75-99)
[2021-09-30] MEDS: INSULIN ASPART (NovoLOG) 100 UNIT/ML VIAL SQ SCH ×4 (06:11→21:37)
[2021-09-30] MEDS: PANTOPRAZOLE 40 MG/10 ML VIAL IV SCH (08:43)
[2021-09-30] MEDS: ASPIRIN 81 MG PO SCH (08:43)
[2021-09-30] MEDS: ISOSORBIDE MONONITRATE ER 30 MG TAB.ER.24H PO SCH (08:43)
[2021-09-30] MEDS: ATORVASTATIN 40 MG TAB PO SCH (08:43)
[2021-09-30] MEDS: HEPARIN SODIUM,PORCINE/PF 5,000 UNIT/0.5 ML SYRINGE SQ SCH ×2 (08:44→16:56)
[2021-09-30] MEDS: PIPERACILLIN-TAZOBACTAM 3.375 GM in SODIUM CHLORIDE 0.9% 100 ML IVPB SCH ×2 (08:44→16:55)
[2021-09-30] MEDS: BALSALAZIDE DISODIUM 750 MG CAPSULE PO SCH ×3 (09:20→21:37)
--- NOTE | 2021-09-30 10:13 | XR ---
EXAMINATION TYPE: XR wrist complete RT DATE OF EXAM: 09/30/2021 COMPARISON: NONE HISTORY: Pain TECHNIQUE: Four views submitted. FINDINGS: The osseous structures are intact. The joint spaces are preserved and there is no acute fracture or dislocation. IMPRESSION: 1. No definite acute fracture or dislocation if symptoms persist, follow-up study in 7 to 10 days wo uld be suggested
[2021-09-30 10:21] LABS: ALT 15 U/L (4-49); AST 20 U/L (17-59); African American GFR (CKD) >90 (>60 ml/min/1.73 sqM); Albumin 3.3 g/dL (3.5-5.0); Alkaline Phosphatase 88 U/L (38-126); Anion Gap 10 mmol/L; Bilirubin,Unconjugated 0.7 mg/dL (0.0-1.1); Blood Urea Nitrogen 13 mg/dL (9-20); Calcium 8.2 mg/dL (8.4-10.2); Carbon Dioxide 22 mmol/L (22-30); Chloride 106 mmol/L (98-107); Glucose 189 mg/dL (74-99); Magnesium 1.8 mg/dL (1.6-2.3); Non-African American GFR(CKD) >90 (>60 ml/min/1.73 sqM); Potassium 3.8 mmol/L (3.5-5.1); Sodium 138 mmol/L (137-145); Total Bilirubin 0.7 mg/dL (0.2-1.3); Total Protein 5.5 g/dL (6.3-8.2)
[2021-09-30 10:30] LABS: Basophils % (A) 0 %; Eosinophils # (A) 0.1 k/uL (0-0.7); Eosinophils % (A) 1 %; HCT 45.5 % (39.0-53.0); HGB 14.5 gm/dL (13.0-17.5); Lymphocytes # (A) 1.5 k/uL (1.0-4.8); Lymphocytes % (A) 15 %; MCH 27.5 pg (25.0-35.0); MCHC 31.9 g/dL (31.0-37.0); MCV 86.3 fL (80.0-100.0); Mean Platelet Volume 9.3; Monocytes # (A) 0.9 k/uL (0-1.0); Monocytes % (A) 8 %; Neutrophils # (A) 7.8 k/uL (1.3-7.7); Neutrophils % (A) 74 %; Platelet Count 207 k/uL (150-450); RBC 5.27 m/uL (4.30-5.90); WBC 10.5 k/uL (3.8-10.6)
--- NOTE | 2021-09-30 11:05 | US ---
EXAMINATION TYPE: US venous doppler duplex UE RT DATE OF EXAM: 09/30/2021 COMPARISON: NONE CLINICAL HISTORY: pain and swelling. Pain and swelling. No hx of DVT. Patient takes aspirin. SIDE PERFORMED: Right arm Right Arm: Internal echoes seen within the cephalic vein at the elbow. Color defect/ lack of color fl ow is seen at this level. Cephalic vein appears to compress incompletely. No evidence of DVT at this time. IMPRESSION: 1. No diagnostic evidence of DVT. However, findings suspicious for cephalic vein superficial venous t hrombosis.
[2021-09-30 11:22] VITALS: BMI 25.8
[2021-09-30 11:44] LABS: Glucose,Whole Blood 219 mg/dL (75-99)
[2021-09-30 16:50] LABS: Glucose,Whole Blood 137 mg/dL (75-99)
--- NOTE | 2021-09-30 18:41 | P.PN ---
Subjective This is a pleasant 61 years old male with past medical history of Diabetes Mellitus, Hyperlipidemia, Hypertension, ulcerative colitis, coronary artery disease status post CABG Patient presents because of right lower quadrant abdominal pain of one-day duration, 10 was 10/10 in severity but now improved down to 4-5/10, felt like sharp and throbbing associated with multiple vomiting, no blood which is stopped now. Last time was last night. He had little bowel movement yesterday, basically it's more sore the constipation side. Patient denies chest pain or dyspnea. No dysuria or increased frequency/urgency. She has little headache but no dizziness or weakness or numbness. He smokes few cigarettes occasionally as he states. Patient is counseled. He is declining nicotine patch. No alcohol or illicit tracts. Patient supposed to follow up with orthopedic for scheduled left shoulder surgery on Sunday 10/29. Vitas looks stable. Repeat labs this morning show an unremarkable and normal CBC, INR, BMP and liver enzymes. Lipase as 26. Elevated lactic acid on admission improved to normal at 1.2. EKG showing sinus tachycardia at 106, no significant ST-T changes. QTC 403. Chest x-ray: Mild pulmonary fibrotic changes. No acute pulmonary process. CT of the abdomen and pelvis: Extensive atherosclerotic vascular calcification for the patient's age. No acute abnormality of the abdomen and pelvis. On admission patient was started on normal saline, Zosyn. Also she was started on a Protonix and pain management Check ESR and CRP and they were normal ESR 8 and slightly elevated CRP at 8.7. 09/30/2021 Patient states today his abdominal pain is improved as 0/10 However he was complaining of from right wrist pain and swelling and warmth and says it hurts however patient was noticed during the day with improvement movement in his right wrist. X-rays negative, Doppler is negative as well for acute DVT. He might have some elements of superficial thrombophlebitis. No diarrhea. Discontinue it on Zosyn and normal saline Consults orthopedic and infectious disease team Repeat labs and procalcitonin tomorrow morning Objective - Vital Signs Vital signs: Vital Signs Temp 98.4 F 09/30/21 11:56 Pulse 81 09/30/21 11:56 Resp 18 09/30/21 11:56 BP 114/69 09/30/21 11:56 Pulse Ox 97 09/30/21 11:56 FiO2 Intake & Output 05/31/22 06/01/22 06/01/22 18:59 06:59 18:59 Intake Total 190 Balance 190 Weight 81.647 kg 81.647 kg Intake: IV 10 Invasive Line 1 10 Oral 180 Other: Voiding Method Toilet # Voids 2 - Exam GENERAL: The patient is alert and oriented x3, not in any acute distress. Well developed, well nourished. HEENT: Pupils are round and equally reacting to light. EOMI. No scleral icterus. No conjunctival pallor. Normocephalic, atraumatic. No pharyngeal erythema. No thyromegaly. CARDIOVASCULAR: S1 and S2 present. No murmurs, rubs, or gallops. PULMONARY: Chest is clear to auscultation, no wheezing or crackles. ABDOMEN: Soft, nontender, nondistended, normoactive bowel sounds. No palpable organomegaly. MUSCULOSKELETAL: No joint swelling or deformity. -EXTREMITIES: No cyanosis, clubbing, or pedal edema. Right wrist is swollen and warm and tender with limited movement NEUROLOGICAL: Gross neurological examination did not reveal any focal deficits. SKIN: No rashes. no petechiae. - Labs CBC & Chem 7: 09/30/21 08:03 09/30/21 08:03 Labs: Abnormal Lab Results - Last 24 Hours (Table) 09/28/21 09/29/21 09/29/21 Range/Units 14:20 08:31 20:13 Neutrophils # (1.3-7.7) k/uL Glucose (74-99) mg/dL POC Glucose (mg/dL) 129 H (75-99) mg/dL Calcium (8.4-10.2) mg/dL Total Protein (6.3-8.2) g/dL Albumin (3.5-5.0) g/dL Procalcitonin 8.49 H (0.02-0.09) ng/mL Ur Specific [place] 1.039 H (1.001-1.035) Urine Glucose (UA) 4+ H (Negative) Urine Ketones 1+ H (Negative) 09/30/21 09/30/21 09/30/21 Range/Units 02:01 06:04 08:03 Neutrophils # 7.8 H (1.3-7.7) k/uL Glucose (74-99) mg/dL POC Glucose (mg/dL) 126 H 127 H (75-99) mg/dL Calcium (8.4-10.2) mg/dL Total Protein (6.3-8.2) g/dL Albumin (3.5-5.0) g/dL Procalcitonin (0.02-0.09) ng/mL Ur Specific [place] (1.001-1.035) Urine Glucose (UA) (Negative) Urine Ketones (Negative) 09/30/21 09/30/21 Range/Units 08:03 11:42 Neutrophils # (1.3-7.7) k/uL Glucose 189 H (74-99) mg/dL POC Glucose (mg/dL) 219 H (75-99) mg/dL Calcium 8.2 L (8.4-10.2) mg/dL Total Protein 5.5 L (6.3-8.2) g/dL Albumin 3.3 L (3.5-5.0) g/dL Procalcitonin (0.02-0.09) ng/mL Ur Specific [place] (1.001-1.035) Urine Glucose (UA) (Negative) Urine Ketones (Negative) Microbiology - Last 24 Hours (Table) 09/28/21 23:45 Blood Culture - Preliminary Blood No Growth after 24 hours 09/28/21 23:15 Blood Culture - Preliminary Blood No Growth after 24 hours Assessment and Plan Assessment: Abdominal pain, resolved Right wrist pain and swelling, possible cellulitis versus superficial thrombophlebitis History of ulcerative colitis Shoulder pain supposed to undergo surgery on Tuesday Hyperlipidemia Hypertension Diabetes mellitus History of coronary artery disease status post CABG Plan: This is a pleasant 61 years old male who presents with abdominal pain, and dry dressed swelling and pain Continue with Zosyn Check labs in the morning orthopedic and infectious disease consult reCheck pro-calcitonin Advance diet as tolerated as his abdominal pain improved Patient is cleared by surgical team Labs and medication were reviewed.. Continue same treatment. Continue with symptomatic treatment. Resume home medication. Monitor lytes and vitals. DVT and GI prophylaxis. Further recommendations depends on the clinical course of the patient DVT prophylaxis: Subcutaneous heparin GI Prophylaxis: Pepcid PT/OT: Pending Prognosis is guarded
[2021-09-30] MEDS: MORPHINE SULFATE 2 MG/ML SYRINGE IV PRN (20:04)
[2021-09-30 20:10] LABS: Glucose,Whole Blood 202 mg/dL (75-99)
[2021-09-30] MEDS: traZODone HCL 50 MG TAB PO SCH (21:37)
[2021-09-30] MEDS: QUEtiapine 100 MG TAB PO SCH (21:37)
[2021-09-30] MEDS: lisinopriL 5 MG TAB PO SCH (21:38)
[2021-10-01] MEDS: HEPARIN SODIUM,PORCINE/PF 5,000 UNIT/0.5 ML SYRINGE SQ SCH ×2 (00:13→09:14)
[2021-10-01] MEDS: PIPERACILLIN-TAZOBACTAM 3.375 GM in SODIUM CHLORIDE 0.9% 100 ML IVPB SCH ×2 (00:13→09:14)
[2021-10-01] MEDS: MORPHINE SULFATE 2 MG/ML SYRINGE IV PRN ×2 (00:14→04:37)
[2021-10-01 02:14] LABS: Glucose,Whole Blood 123 mg/dL (75-99)
[2021-10-01] MEDS: SODIUM CHLORIDE 0.9% 1,000 ML IV SCH (04:42)
[2021-10-01 06:17] LABS: Glucose,Whole Blood 118 mg/dL (75-99)
[2021-10-01] MEDS: INSULIN ASPART (NovoLOG) 100 UNIT/ML VIAL SQ SCH ×2 (06:24→12:18)
--- NOTE | 2021-10-01 06:54 | P.CONS ---
History of Present Illness - Reason for Consult Consult date: 09/30/21 Sepsis abdominal pain and wrist pain Requesting physician: Benny E Sheet - Chief Complaint Abdominal pain 1 day - History of Present Illness Patient is a 61-year old male with a past medical history significant for diabetes mellitus hypertension hyperlipidemia ulcerative colitis coronary disease presented to hospital with right lower quadrant abdominal pain 1 day duration patient mention pain started suddenly and was almost 10 or 10 in severity patient also started having nausea and vomiting and did have multiple episodes of vomiting but denies having any diarrhea with the symptom the patient did present to the hospital on arrival to the ER patient was afebrile and no fever have been recorded subsequently patient did have white count of 15.8 on admission however repeat white count was normal patient did have a normal kidney function liver exams are normal CRP was 8.7 procalcitonin was 8.49, patient did have a chest x-ray mild pulmonary fibrotic changes no acute lung disease patient also have a CT of abdominal pelvis extensive atherosclerotic vascular calcification on the patient age and acute abnormality of abdomen pelvis patient was started on Zosyn infectious disease was consulted today for further management of antibiotic therapy did have blood cultures drawn and subsequent negative patient also complaining of pain into the right wrist area that started while in the hospital. Denies any history of any trauma describing the pain to be more of a sharp 5-6 over 10 radiation did have slight limitation of the movement but no redness or no wound and no drainage did have x-rays of the wrist no definite acute fracture or dislocation Review of Systems Positive point has been mentioned in the HPI rest of the systems are negative Past Medical History Past Medical History: Coronary Artery Disease (CAD), Diabetes Mellitus, Hyperlipidemia, Hypertension Additional Past Medical History / Comment(s): ulcerative colitis History of Any Multi-Drug Resistant Organisms: None Reported Past Surgical History: Coronary Bypass/CABG, Heart Catheterization, Joint Replacement Additional Past Surgical History / Comment(s): quadruple bypass 2016,. rt hip replacement, left Shoulder steriod injections, right hip pain with difficulty walking, pain radiates to back Past Anesthesia/Blood Transfusion Reactions: No Reported Reaction, Motion Sickness Past Psychological History: No Psychological Hx Reported Smoking Status: Current some day smoker Past Alcohol Use History: None Reported Past Drug Use History: None Reported - Past Family History Mother Family Medical History: Osteoarthritis (OA) Additional Family Medical History / Comment(s): Back and Heart surgery for mothe r Medications and Allergies Home Medications Medication Instructions Recorded Confirmed Type Aspirin [Adult Low Dose Aspirin EC] 81 mg PO DAILY 04/03/21 09/28/21 History Atorvastatin [Lipitor] 40 mg PO DAILY 04/03/21 09/28/21 History Cholecalciferol [Vitamin D3 (25 25 mcg PO DAILY 04/03/21 09/28/21 History Mcg = 1000 Iu)] [place]-3 Fatty Acids/Fish Oil [Fish 1 cap PO BID 04/03/21 09/28/21 History Oil 1,000 mg Softgel] lisinopriL [Zestril] 5 mg PO HS 04/03/21 09/28/21 History traZODone HCL 150 mg PO HS 04/03/21 09/28/21 History Isosorbide Mononitrate ER [Imdur] 30 mg PO DAILY #30 tab 04/06/21 09/28/21 Rx Empagliflozin/Metformin HCl 1 tab PO HS 07/21/21 09/28/21 History [Synjardy 12.5-500 mg Tablet] Acetaminophen-Codeine 300-30mg 1 tab PO Q6H PRN 09/28/21 09/28/21 History [Tylenol w/codeine #3] Insulin Aspart [NovoLOG Flexpen] See Protocol SQ TID-W/MEALS PRN 09/28/21 09/28/21 History Mesalamine 800 mg PO TID 09/28/21 09/28/21 History QUEtiapine [SEROquel] 100 mg PO HS 09/28/21 09/28/21 History Allergies Allergy/AdvReac Type Severity Reaction Status Date / Time No Known Allergies Allergy Verified 09/28/21 21:55 Physical Exam Vitals: Vital Signs Temp Pulse Resp BP Pulse Ox 09/30/21 11:56 98.4 F 81 18 114/69 97 09/30/21 08:52 98.4 F 72 18 128/80 95 09/30/21 04:00 98.5 F 80 12 118/73 91 L 09/29/21 23:49 98.5 F 75 12 113/68 91 L 09/29/21 20:40 98.4 F 74 20 128/70 92 L 09/29/21 19:48 98.1 F 75 12 141/80 94 L Intake and Output 09/29/21 09/30/21 09/30/21 22:59 06:59 14:59 Intake Total 190 Balance 190 Intake: IV 10 Invasive Line 1 10 Oral 180 Other: Voiding Method Toilet Toilet # Voids 1 2 Weight 81.647 kg 81.647 kg GENERAL DESCRIPTION: Middle-aged male lying in bed, no distress. No tachypnea or accessory muscle of respiration use. HEENT: Shows Pallor , no scleral icterus. Oral mucous membrane is dry. No pharyngeal erythema or thrush NECK: Trachea central, no thyromegaly. LUNGS: Unlabored breathing. Clear to auscultation anteriorly. No wheeze or crackle. HEART: S1, S2, regular rate and rhythm. No loud murmur ABDOMEN: Soft, no tenderness , guarding or rigidity, no organomegaly EXTREMITIES: No edema of feet. Right wrist did have some limitation of movement however no swelling no redness no wound or any drainage SKIN: No rash, no masses palpable. NEUROLOGICAL: The patient is awake, alert, oriented x3, mood and affect normal. Results CBC & Chem 7: 09/30/21 08:03 09/30/21 08:03 Labs: Abnormal Lab Results - Last 24 Hours (Table) 09/28/21 09/29/21 09/29/21 Range/Units 14:20 08:31 20:13 Neutrophils # (1.3-7.7) k/uL Glucose (74-99) mg/dL POC Glucose (mg/dL) 129 H (75-99) mg/dL Calcium (8.4-10.2) mg/dL Total Protein (6.3-8.2) g/dL Albumin (3.5-5.0) g/dL Procalcitonin 8.49 H (0.02-0.09) ng/mL Ur Specific [place] 1.039 H (1.001-1.035) Urine Glucose (UA) 4+ H (Negative) Urine Ketones 1+ H (Negative) 09/30/21 09/30/21 09/30/21 Range/Units 02:01 06:04 08:03 Neutrophils # 7.8 H (1.3-7.7) k/uL Glucose (74-99) mg/dL POC Glucose (mg/dL) 126 H 127 H (75-99) mg/dL Calcium (8.4-10.2) mg/dL Total Protein (6.3-8.2) g/dL Albumin (3.5-5.0) g/dL Procalcitonin (0.02-0.09) ng/mL Ur Specific [place] (1.001-1.035) Urine Glucose (UA) (Negative) Urine Ketones (Negative) 09/30/21 09/30/21 Range/Units 08:03 11:42 Neutrophils # (1.3-7.7) k/uL Glucose 189 H (74-99) mg/dL POC Glucose (mg/dL) 219 H (75-99) mg/dL Calcium 8.2 L (8.4-10.2) mg/dL Total Protein 5.5 L (6.3-8.2) g/dL Albumin 3.3 L (3.5-5.0) g/dL Procalcitonin (0.02-0.09) ng/mL Ur Specific [place] (1.001-1.035) Urine Glucose (UA) (Negative) Urine Ketones (Negative) Microbiology - Last 24 Hours (Table) 09/28/21 23:45 Blood Culture - Preliminary Blood No Growth after 24 hours 09/28/21 23:15 Blood Culture - Preliminary Blood No Growth after 24 hours Assessment and Plan (1) Lactic acidosis Current Visit: Yes Status: Acute Code(s): E87.2 - ACIDOSIS SNOMED Code(s): 78572946 Plan: 1patient presented to hospital with acute abdominal pain and vomiting in this patient who did have a history of atherosclerotic heart disease status post bypass surgery and CT of the abdominal pelvis did shows extensive atherosclerotic changes did have elevated lactic acid on presentation to the hospital with concern for possible mild ischemia in the setting have responded to the IV fluid and antibiotics as CT did not show any acute changes and the patient currently do not have any tenderness on abdominal examination. 2right wrist pain x-rays negative no signs of cellulitis clinically. 3continue with Zosyn while inpatient along with gentle IV fluid however will be able to transition to short course of antibiotic orally on discharge. We will follow on clinical condition and cultures to further adjust medication if needed Thank you for this consultation will follow this patient along with you Time with Patient: Greater than 30
[2021-10-01 08:58] LABS: Basophils % (A) 0 %; Eosinophils # (A) 0.2 k/uL (0-0.7); Eosinophils % (A) 2 %; HCT 48.7 % (39.0-53.0); HGB 15.9 gm/dL (13.0-17.5); Lymphocytes # (A) 1.3 k/uL (1.0-4.8); Lymphocytes % (A) 11 %; MCH 27.7 pg (25.0-35.0); MCHC 32.6 g/dL (31.0-37.0); MCV 85.2 fL (80.0-100.0); Mean Platelet Volume 8.1; Monocytes # (A) 0.7 k/uL (0-1.0); Monocytes % (A) 6 %; Neutrophils # (A) 9.1 k/uL (1.3-7.7); Neutrophils % (A) 80 %; Platelet Count 239 k/uL (150-450); RBC 5.72 m/uL (4.30-5.90); RDW 14.2 % (11.5-15.5); WBC 11.5 k/uL (3.8-10.6)
[2021-10-01] MEDS: PANTOPRAZOLE 40 MG/10 ML VIAL IV SCH (09:14)
[2021-10-01] MEDS: ISOSORBIDE MONONITRATE ER 30 MG TAB.ER.24H PO SCH (09:15)
[2021-10-01] MEDS: ASPIRIN 81 MG PO SCH (09:15)
[2021-10-01] MEDS: BALSALAZIDE DISODIUM 750 MG CAPSULE PO SCH (09:15)
[2021-10-01] MEDS: ATORVASTATIN 40 MG TAB PO SCH (09:15)
[2021-10-01 09:23] LABS: African American GFR (CKD) >90 (>60 ml/min/1.73 sqM); Anion Gap 8 mmol/L; Blood Urea Nitrogen 9 mg/dL (9-20); Calcium 8.9 mg/dL (8.4-10.2); Carbon Dioxide 23 mmol/L (22-30); Chloride 107 mmol/L (98-107); Glucose 243 mg/dL (74-99); Magnesium 1.7 mg/dL (1.6-2.3); Non-African American GFR(CKD) >90 (>60 ml/min/1.73 sqM); Potassium 4.2 mmol/L (3.5-5.1); Sodium 138 mmol/L (137-145)
--- NOTE | 2021-10-01 09:53 | P.CNOR ---
History of Present Illness - [facility] Consult date: 10/01/21 Consult reason: joint pain (Right wrist pain.) History of present illness: This is a 61-year-old gentleman admitted with severe nausea and vomiting. The patient was scheduled for shoulder surgery with Dr. Troy this week. He was complaining of right wrist pain during his admission and we're consulted for orthopedic evaluation. There is some question as to possible sepsis which has been ruled out.He is complaining of some numbness and tingling to the middle and ring fingers. He denies injury or trauma. He states that he just woke up yesterday morning with severe pain. Past Medical History Past Medical History: Coronary Artery Disease (CAD), Diabetes Mellitus, Hyperlipidemia, Hypertension Additional Past Medical History / Comment(s): ulcerative colitis History of Any Multi-Drug Resistant Organisms: None Reported Past Surgical History: Coronary Bypass/CABG, Heart Catheterization, Joint Replacement Additional Past Surgical History / Comment(s): quadruple bypass 2016,. rt hip replacement, left Shoulder steriod injections, right hip pain with difficulty wa lking, pain radiates to back Past Anesthesia/Blood Transfusion Reactions: No Reported Reaction, Motion Sickness Past Psychological History: No Psychological Hx Reported Smoking Status: Current some day smoker Past Alcohol Use History: None Reported Past Drug Use History: None Reported - Past Family History Mother Family Medical History: Osteoarthritis (OA) Additional Family Medical History / Comment(s): Back and Heart surgery for mother Medications and Allergies Home Medications Medication Instructions Recorded Confirmed Type Aspirin [Adult Low Dose Aspirin EC] 81 mg PO DAILY 04/03/21 09/28/21 History Atorvastatin [Lipitor] 40 mg PO DAILY 04/03/21 09/28/21 History Cholecalciferol [Vitamin D3 (25 25 mcg PO DAILY 04/03/21 09/28/21 History Mcg = 1000 Iu)] [place]-3 Fatty Acids/Fish Oil [Fish 1 cap PO BID 04/03/21 09/28/21 History Oil 1,000 mg Softgel] lisinopriL [Zestril] 5 mg PO HS 04/03/21 09/28/21 History traZODone HCL 150 mg PO HS 04/03/21 09/28/21 History Isosorbide Mononitrate ER [Imdur] 30 mg PO DAILY #30 tab 04/06/21 09/28/21 Rx Empagliflozin/Metformin HCl 1 tab PO HS 07/21/21 09/28/21 History [Synjardy 12.5-500 mg Tablet] Acetaminophen-Codeine 300-30mg 1 tab PO Q6H PRN 09/28/21 09/28/21 History [Tylenol w/codeine #3] Insulin Aspart [NovoLOG Flexpen] See Protocol SQ TID-W/MEALS PRN 09/28/21 09/28/21 History Mesalamine 800 mg PO TID 09/28/21 09/28/21 History QUEtiapine [SEROquel] 100 mg PO HS 09/28/21 09/28/21 History Allergies Allergy/AdvReac Type Severity Reaction Status Date / Time No Known Allergies Allergy Verified 09/28/21 21:55 Physical Examination This is a pleasant 61-year-old gentleman in no acute distress. He is alert and oriented 3. Exam of the right upper extremity reveals no erythema or e cchymosis. There is no soft tissue swelling to the wrist. There is mild pain on the volar aspect of the wrist. He has limited motion of the wrist and the fingers secondary to pain. There is no joint effusion noted. Neurovascular status to the upper extremity is intact. Results Wrist x-rays reveal no acute bony abnormality. Minimal arthritic changes noted. - Labs Labs: Abnormal Lab Results - Last 24 Hours (Table) 09/30/21 09/30/21 09/30/21 Range/Units 08:03 08:03 11:42 WBC (3.8-10.6) k/uL Neutrophils # 7.8 H (1.3-7.7) k/uL Glucose 189 H (74-99) mg/dL POC Glucose (mg/dL) 219 H (75-99) mg/dL Calcium 8.2 L (8.4-10.2) mg/dL Total Protein 5.5 L (6.3-8.2) g/dL Albumin 3.3 L (3.5-5.0) g/dL 09/30/21 09/30/21 10/01/21 Range/Units 16:49 20:08 02:13 WBC (3.8-10.6) k/uL Neutrophils # (1.3-7.7) k/uL Glucose (74-99) mg/dL POC Glucose (mg/dL) 137 H 202 H 123 H (75-99) mg/dL Calcium (8.4-10.2) mg/dL Total Protein (6.3-8.2) g/dL Albumin (3.5-5.0) g/dL 10/01/21 10/01/21 10/01/21 Range/Units 06:15 08:22 08:22 WBC 11.5 H (3.8-10.6) k/uL Neutrophils # 9.1 H (1.3-7.7) k/uL Glucose 243 H (74-99) mg/dL POC Glucose (mg/dL) 118 H (75-99) mg/dL Calcium (8.4-10.2) mg/dL Total Protein (6.3-8.2) g/dL Albumin (3.5-5.0) g/dL Microbiology - Last 24 Hours (Table) 09/28/21 23:45 Blood Culture - Preliminary Blood No Growth after 48 hours 09/28/21 23:15 Blood Culture - Preliminary Blood No Growth after 48 hours H & H 09/28/21 09/29/21 09/30/21 Range/Units 20:08 05:51 08:03 Hgb 19.3 H* 14.7 D 14.5 (13.0-17.5) gm/dL Hct 58.6 H* 45.1 45.5 (39.0-53.0) % 10/01/21 Range/Units 08:22 Hgb 15.9 (13.0-17.5) gm/dL Hct 48.7 (39.0-53.0) % Coagulation 09/28/21 Range/Units 20:08 INR 1.0 (<1.2) Result Diagrams: 10/01/21 08:22 10/01/21 08:22 Assessment and Plan (1) Right wrist pain Current Visit: Yes Status: Acute Code(s): M25.531 - PAIN IN RIGHT WRIST SNOMED Code(s): 13041234 (2) Severe dehydration Current Visit: Yes Status: Acute Code(s): E86.0 - DEHYDRATION SNOMED Code(s): 582329406 Plan: The clinical and x-ray findings are discussed with the patient. It is discussed that he has no acute abnormality on x-ray. He does have mild degenerative changes. With his paresthesias, it is likely that he is experiencing a mild carpal tunnel syndrome. We also discussed the possibility of cervical contribution to his symptoms. I will cancel his surgery with Dr. Troy for this week. He will follow-up with Dr. Troy to reschedule.
[2021-10-01 10:54] VITALS: RESP 16; TEMP 97.7
[2021-10-01 11:45] LABS: Glucose,Whole Blood 205 mg/dL (75-99)
[2021-10-01 11:58] VITALS: BP 135/81; PULSE 74
--- NOTE | 2021-10-01 17:57 | P.DS ---
Providers Date of admission: 09/28/21 23:17 Attending physician: Benny Acuña MD Consults: 09/28/21 22:47 Consult Physician Stat Consulting Provider: Gisela Hernández Consult Reason/Comments: Abdominal pain, lactic acidosis, questionable sepsis, 07/21 colonoscopy Do you want consulting provider notified?: Yes 09/30/21 09:40 Consult Physician Routine Consulting Provider: Enoch Troy Consult Reason/Comments: Known patient-NOS wrist pain Do you want consulting provider notified?: Yes 09/30/21 09:47 Consult Physician Urgent Consulting Provider: Eddie Jarquin Consult Reason/Comments: sepsis, abd pain and right wrist pain Do you want consulting provider notified?: Yes Primary care physician: Nuria Olmstead Hospital Course: Diagnoses: Abdominal pain, resolved Right wrist pain and swelling, possible cellulitis versus superficial thrombophlebitis History of ulcerative colitis Shoulder pain supposed to undergo surgery on Tuesday Hyperlipidemia Hypertension Diabetes mellitus History of coronary artery disease status post CABG Hospital course: This is a pleasant 61 years old male with past medical history of Diabetes Mellitus, Hyperlipidemia, Hypertension, ulcerative colitis, coronary artery disease status post CABG Patient presents because of right lower quadrant abdominal pain of one-day duration, 10 was 10/10 in severity. Patient has been evaluated by surgical team. His pro-calcitonin was elevated significantly to 8.4. Patient treated with IV fluids and Zosyn. Patient showed interval improvement and he was cleared by surgical team for discharge. Neck stay patient developed pain in his right wrist, excised and Doppler were negative for DVT. Orthopedic input is obtained and I discussed the case with them, most likely patient has carpal tunnel syndrome, splint on conservative treatment is recommended by orthopedic team. ID team also evaluated the patient Today patient is back to baseline except for mild discomfort in his right wrist, no erythema or swelling, function is normal. Abdominal pain completely resolved and he has regular bowel movement and tolerates diet well. Patient denies any other symptoms, no chest pain or dyspnea. No endocrine weakness or numbness. No urinary complaints. No fever. Patient was cleared for discharge by all consultants including surgery, ID and orthopedic team. Problems and management plan were discussed with the patient and he verbalized understanding and acceptance Patient was found stable and can be discharged home however he needs follow-up as an outpatient. Patient was instructed to follow up with PCP Dr. Valiente within one week and patient agrees Patient was instructed to follow up with orthopedic Dr. Troy on 10/05 and he agrees Patient will be discharged on Augmentin 7 days, discussed with ID team and they agree with this recommendation Physical exam Gen: patient is a AAOx3, no distress CVS: S1-S2, RRR, no murmur Lungs: B/L CTA, no wheezing Abdomen: soft, no distention, no tenderness, positive bowel sounds Extremity: no leg edema or induration Time spent more than 35 minutes Patient Condition at Discharge: Fair Plan - Discharge Summary Discharge Rx Participant: No New Discharge Prescriptions: New Amoxic-Pot Clav 875-125Mg [Augmentin 875-125] 1 tab PO Q12HR 7 Days #14 tab Continue [place]-3 Fatty Acids/Fish Oil [Fish Oil 1,000 mg Softgel] 1 cap PO BID Cholecalciferol [Vitamin D3 (25 Mcg = 1000 Iu)] 25 mcg PO DAILY Isosorbide Mononitrate ER [Imdur] 30 mg PO DAILY #30 tab Mesalamine 800 mg PO TID traZODone HCL 150 mg PO HS lisinopriL [Zestril] 5 mg PO HS Aspirin [Adult Low Dose Aspirin EC] 81 mg PO DAILY Atorvastatin [Lipitor] 40 mg PO DAILY Empagliflozin/Metformin HCl [Synjardy 12.5-500 mg Tablet] 1 tab PO HS QUEtiapine [SEROquel] 100 mg PO HS Acetaminophen-Codeine 300-30mg [Tylenol w/codeine #3] 1 tab PO Q6H PRN PRN Reason: Pain Insulin Aspart [NovoLOG Flexpen] See Protocol SQ TID-W/MEALS PRN PRN Reason: HIGH BLOOD SUGAR Discharge Medication List Aspirin [Adult Low Dose Aspirin EC] 81 mg PO DAILY 04/03/21 [History] Atorvastatin [Lipitor] 40 mg PO DAILY 04/03/21 [History] Cholecalciferol [Vitamin D3 (25 Mcg = 1000 Iu)] 25 mcg PO DAILY 04/03/21 [History] [place]-3 Fatty Acids/Fish Oil [Fish Oil 1,000 mg Softgel] 1 cap PO BID 04/03/21 [History] lisinopriL [Zestril] 5 mg PO HS 04/03/21 [History] traZODone HCL 150 mg PO HS 04/03/21 [History] Isosorbide Mononitrate ER [Imdur] 30 mg PO DAILY #30 tab 04/06/21 [Rx] Empagliflozin/Metformin HCl [Synjardy 12.5-500 mg Tablet] 1 tab PO HS 07/21/21 [History] Acetaminophen-Codeine 300-30mg [Tylenol w/codeine #3] 1 tab PO Q6H PRN 09/28/21 [History] Insulin Aspart [NovoLOG Flexpen] See Protocol SQ TID-W/MEALS PRN 09/28/21 [History] Mesalamine 800 mg PO TID 09/28/21 [History] QUEtiapine [SEROquel] 100 mg PO HS 09/28/21 [History] Amoxic-Pot Clav 875-125Mg [Augmentin 875-125] 1 tab PO Q12HR 7 Days #14 tab 10/01/21 [Rx] Follow up Appointment(s)/Referral(s): Nuria Olmstead MD [Primary Care Provider] - 10/06/21 4:00 pm Enoch Troy MD [STAFF PHYSICIAN] - 10/05/21 1:00 pm Patient Instructions/Handouts: Acute Abdominal Pain (DC) Activity/Diet/Wound Care/Special Instructions: Use cock-up wrist brace right wrist for comfort. Discharge Disposition: HOME SELF-CARE
--- NOTE | 2021-10-06 07:49 | CDI ---
Documentation Clarification Form Date: 10/06/2021 07:32:00 AM From: Jocelyn Remy Admit Date: 09/28/2021 11:17:00 PM Patient Name: Dale Sloan Visit Number: [id number] Discharge Date: 10/01/2021 12:55:00 PM ATTENTION: The Clinical Documentation Specialists (CDI) and [facility] Coding Staff appreciate your assistance in clarifying documentation. Please respond to the clarification below the line at the bottom and electronically sign. The CDI & [facility] Coding staff will review the response and follow-up if needed. Please note: Queries are made part of the Legal Health Record. If you have any questions, please contact the author of this message via ITS. Dr. Zapata E Sheet Per ER notes Sepsis focused exam. Time sepsis criteria met: 20:46. Sepsis focused exam complete. Clincal impression Severe sepsis. Consult reason: sepsis, abdominal pain and right wrist pain. Sepsis not documented through chart. Please clarify if patient had sepsis or was it ruled out. History/Risk Factors: Patient with possible right wrist cellulitis vs. thrombphlebitis superficial. Clinical Indicators: WBC: 15.8 Lactic acid: 1.2 Blood cultures: No growth Vitals signs: 98.1 F 130 bpm, 20, 131/81, 98% RA Treatment: IV fluids and IV antibiotics ID Consult: acute abdomen and vomiting, elevated lactic acid Antibiotics: Zosyn and transitioning to an oral antibiotic at discharge In your professional opinion, please clarify if these findings signify one of the following conditions: [ ] Sepsis POA [ ] Sepsis, Not POA [ ] Sepsis ruled out [ ] Severe Sepsis with organ failure [ ] SIRS, without underlying infectious process [ ] Other, please specify [ ] Unable to determine SIRS Criteria: 2 or more of the following may indicate SIRS -Temperature < 96.8F (36C) or > 101.0F (38.3C) -Heart Rate > 90 bpm -Respiratory Rate > 20 breaths/min or PaCO2 < 32 mmHg -White Blood Cell Count > 12,000 or < 4,000 cells/mm3 or > 10% bands no sepsis MTDD
== END 2021-10-01 12:55 | disposition home or self-care (01) | DRG 392 ==
LOC: EC 19:12 → 3SCARD 23:17
PROVIDERS: ADMIT Internal Medicine; ATTEND Internal Medicine
DX: R10.9 Unspecified abdominal pain (principal); L03.113 Cellulitis of right upper limb; E87.2 Acidosis; K51.90 Ulcerative colitis, unspecified, without complications; I80.8 Phlebitis and thrombophlebitis of other sites; E11.9 Type 2 diabetes mellitus without complications; E78.5 Hyperlipidemia, unspecified; E86.0 Dehydration; G56.01 Carpal tunnel syndrome, right upper limb; R26.2 Difficulty in walking, not elsewhere classified; M25.551 Pain in right hip; F17.210 Nicotine dependence, cigarettes, uncomplicated; R11.10 Vomiting, unspecified; I10 Essential (primary) hypertension; I25.10 Atherosclerotic heart disease of native coronary artery without angina pectoris; K59.00 Constipation, unspecified; Z79.82 Long term (current) use of aspirin; Z79.899 Other long term (current) drug therapy; Z95.1 Presence of aortocoronary bypass graft; Z96.641 Presence of right artificial hip joint; Z98.890 Other specified postprocedural states; M25.512 Pain in left shoulder; Z82.61 Family history of arthritis; Z82.49 Family history of ischemic heart disease and other diseases of the circulatory system; Z71.6 Tobacco abuse counseling
CPT/HCPCS: 36415; 71045; 74177; 80048; 80053; 80076; 81003; 82150; 83605; 83690; 83735; 84145; 84484; 85025; 85610; 85652; 85730; 86140; 87040; 93005; 96361; 96365; 96366; 96372; 96375; 96376; 99285

== ENCOUNTER → 2022-02-16 | Outpatient (CLI) | payer MEDICARE, OTHER ==
--- NOTE | 2022-02-16 17:40 | US ---
EXAMINATION TYPE: US venous doppler duplex LE RT DATE OF EXAM: 02/16/2022 5:07 PM COMPARISON: NONE CLINICAL HISTORY: RLE M79.661 PAIN IN RIGHT LOWER LEG. Pain on the right x 1 month, no h/o dvt SIDE PERFORMED: Right TECHNIQUE: The lower extremity deep venous system is examined utilizing real time linear array sonog ania with graded compression, doppler sonography and color-flow sonography. VESSELS IMAGED: Common Femoral Vein Deep Femoral Vein Greater Saphenous Vein * Femoral Vein Popliteal Vein Small Saphenous Vein * Proximal Calf Veins (* superficial vessels) Right Leg: Negative for DVT Grayscale, color doppler, spectral doppler imaging performed of the deep veins of the lower extremiti es. There is normal flow, compressibility, vascular waveforms. IMPRESSION: Negative for DVT
== END | disposition home or self-care (01) ==
LOC: RADUSWWP 16:52
PROVIDERS: ATTEND Family Medicine
DX: M79.661 Pain in right lower leg (principal)

== ENCOUNTER → 2022-04-06 | Outpatient (CLI) | payer MEDICARE, OTHER ==
--- NOTE | 2022-04-06 10:16 | US ---
EXAMINATION TYPE: US venous doppler duplex LE DATE OF EXAM: 04/06/2022 9:24 AM COMPARISON: Right lower extremity venous ultrasound 02/16/2022. CLINICAL HISTORY: I73.9 PERIPHERAL VASCULAR DISEASE, UNSPECIFIED. Non-healing wound right heel SIDE PERFORMED: Bilateral TECHNIQUE: The lower extremity deep venous system is examined utilizing real time linear array sonog ania with graded compression, doppler sonography and color-flow sonography. VESSELS IMAGED: Common Femoral Vein Deep Femoral Vein Greater Saphenous Vein * Femoral Vein Popliteal Vein Small Saphenous Vein * Proximal Calf Veins (* superficial vessels) Grayscale, color doppler, spectral doppler imaging performed of the deep veins of the lower extremiti es. There is normal flow, compressibility, vascular waveforms. Right Leg: Negative for DVT Left Leg: Negative for DVT IMPRESSION: No ultrasound evidence for deep venous thrombosis of the bilateral lower extremities.
--- NOTE | 2022-04-07 07:38 | US ---
EXAMINATION TYPE: US arterial LE multi level DATE OF EXAM: 04/06/2022 9:56 AM CLINICAL HISTORY: I73.9 PERIPHERAL VASCULAR DISEASE, UNSPECIFIED. Non-healing wound right heel x 1 mo nth. History of hyperlipidemia and hypertension. History of diabetes. History of prior CABG. Comparison: Prior CT abdomen and pelvis study September 28, 2021 Doppler Waveforms: Right: Monophasic Left: Biphasic Pulse Volume Recording: Ankle-Brachial Indices: Right: 0.6 Left: 1.2 Toe Brachial Indices: Right: 0.4 Left: 0.7 Loss of phasicity on the right. IMPRESSION: Loss of phasicity on the right with diminished NADIA and TBI values consistent with at [address] moderate peripheral arterial disease in the right lower extremity. Further workup and follow-up ad vised.
== END | disposition home or self-care (01) ==
LOC: RADUSWWP 09:01
PROVIDERS: ATTEND Thoracic Surgery (Cardiothoracic Vascular Surgery)
DX: I73.9 Peripheral vascular disease, unspecified (principal); E11.621 Type 2 diabetes mellitus with foot ulcer; L89.612 Pressure ulcer of right heel, stage 2
CPT/HCPCS: 93923; 93970

== ENCOUNTER → 2022-04-30 | Outpatient (CLI) | payer MEDICARE, OTHER ==
[2022-04-30 14:48] LABS: African American GFR (CKD) >90 (>60 ml/min/1.73 sqM); Blood Urea Nitrogen 15 mg/dL (9-20); Non-African American GFR(CKD) >90 (>60 ml/min/1.73 sqM)
--- NOTE | 2022-04-30 17:38 | CT ---
EXAMINATION TYPE: CT angio abd aorta w/Runoff DATE OF EXAM: 04/30/2022 COMPARISON: CT 09/28/2021 HISTORY: 61-year-old male I70.213 ATHSCL [place] ARTERIES OF EXTRM W INTRMT C, femoral occulsion TECHNIQUE: Contiguous axial scanning of the abdomen and pelvis performed without and with IV Contrast , patient injected with 120 mL of Isovue 370. Additional bilateral lower extremity runoff is performe d. Coronal/sagittal reconstructions performed. 3-D reconstructions generated on a dedicated [employer] workstation. CT DLP: 2083.60 mGycm Automated exposure control for dose reduction was used. FINDINGS: Median sternotomy wires are present. Heart is normal size without pericardial effusion. Dependent ate lectasis in the visualized lower lungs. No pleural effusion. Liver mildly enlarged measuring 19.4 cm. Arterial phase imaging shows no discrete abnormality. Small layering gallstones are noted. No abnormal gallbladder distention. Adrenal glands, left kidney, spleen with small hilar splenule, and pancreas within normal limits. Tin y cortical hypodensity lateral right kidney suggestive of a cyst. No dilated small bowel, free fluid, or free air. Tiny fatty umbilical hernia. No mesenteric or retrop eritoneal lymphadenopathy. Scattered mild to moderate stool. No pericolic inflammatory change. Bladder partially distended. Prostate gland measures 4.9 cm wide. Slightly patulous bilateral inguina l canals. No abnormal fluid collection in the pelvis or pelvic lymphadenopathy. VASCULATURE: Celiac axis. Mild atelectatic plaque and calcification throughout the knee. The bilateral renal arteries are patent. Patent HARDIK. Moderate atherosclerotic calcification and plaque within the infrarenal abdominal aorta. RIGHT: Focal severe stenosis proximal right common iliac artery. Moderate atherosclerotic plaque and calcifi cation is present within the iliac system. Additional scattered moderate atherosclerotic plaque and calcification common and superficial femoral arteries. Profunda femoral arteries are patent. Focal short segment occlusion of the distal SFA at the level of the adductor hiatus with immediate re constitution. Popliteal artery is patent. Normal takeoff of the anterior tibial artery. Tibioperoneal trunk is patent. Moderate atherosclerotic changes throughout the trifurcation vessels. Anterior tibial artery becomes diminutive and then is no longer seen at the distal third leg level. Peroneal artery becomes diminutive distally above the ankle and is no longer seen at the ankle. Runof f via the posterior tibial artery. LEFT: Segmental moderate stenosis left common and external iliac arteries. Severe focal stenosis internal i liac artery. Moderate atherosclerotic calcifications within the common and superficial femoral arteries. Focal moderate to severe stenosis left SFA at the upper third thigh level, axial images 276 series 5. Popliteal artery is patent. Normal takeoff of the anterior tibial artery. Moderate atherosclerotic changes throughout the tibial peroneal trunk and trifurcation vessels. The peroneal artery is seen to the distal third leg level. There is runoff via the anterior tibial an d posterior tibial arteries. BONES: Hypertrophic facet arthropathy. Degenerative grade 1 retrolisthesis L1-L2, L2-L3, L3-L4. Either accessory ossicle or old fragmentation lateral aspect of the right patella. Small Wong's cyst on the left. Previous right hip total arthroplasty. Mild left hip OA. Possible early avascular necro sis anterior weightbearing aspect of the left femoral head. IMPRESSION: RIGHT: 1. SEVERE FOCAL STENOSIS PROXIMAL RIGHT COMMON ILIAC ARTERY. 2. ADDITIONAL MODERATE SCATTERED ATHEROSCLEROTIC CHANGES THROUGHOUT THE RIGHT LOWER EXTREMITY. 3. SHORT SEGMENT OCCLUSION DISTAL SFA AT THE LEVEL OF THE ADDUCTOR HIATUS. 4. ANTERIOR TIBIAL ARTERY BECOMES DIMINUTIVE AND THEN IS NO LONGER SEEN AT THE DISTAL THIRD LEG LEVEL . PERONEAL ARTERY IS NO LONGER SEEN AT THE ANKLE. RUNOFF VIA THE POSTERIOR TIBIAL ARTERY. LEFT: 5. SEGMENTAL MODERATE STENOSES LEFT COMMON AND EXTERNAL ILIAC ARTERIES. SEVERE ATHEROSCLEROTIC STENOS IS INTERNAL ILIAC ARTERY. 6. ADDITIONAL MODERATE ATHEROSCLEROTIC CHANGES THROUGHOUT THE LEFT LOWER EXTREMITY. 7. PERONEAL ARTERY IS SEEN TO THE DISTAL THIRD LEG LEVEL. RUNOFF VIA THE ANTERIOR AND POSTERIOR TIBIA L ARTERIES. INCIDENTAL: 8. CHOLELITHIASIS. MILD PROSTATOMEGALY AT 4.9 CM WIDE.
== END | disposition home or self-care (01) ==
LOC: RADCTMAIN 14:11
PROVIDERS: ATTEND Surgery
DX: I70.213 Atherosclerosis of native arteries of extremities with intermittent claudication, bilateral legs (principal); K80.20 Calculus of gallbladder without cholecystitis without obstruction; N40.0 Benign prostatic hyperplasia without lower urinary tract symptoms
CPT/HCPCS: 82565; 84520; 75635; 36415; Q9967

== ENCOUNTER 2022-05-27 05:49 | Day surgery (SDC) | payer MEDICARE, OTHER ==
[2022-05-24 15:06] VITALS: BMI 25.8
[2022-05-27] MEDS ORDERED: SODIUM CHLORIDE 0.9% 1,000 ML in EMPTY BAG 1 BAG IV ONE (05:54)
[2022-05-27] MEDS ORDERED: ALPRAZolam 0.25 MG TAB PO PRN (05:54)
[2022-05-27] MEDS ORDERED: ASPIRIN 325 MG TAB PO PRN (05:54)
[2022-05-27] MEDS ORDERED: SODIUM CHLORIDE 0.9% 1,000 ML IV ONE (06:10)
[2022-05-27] MEDS ORDERED: ISOSORBIDE MONONITRATE ER 30 MG TAB.ER.24H PO STA (06:13)
[2022-05-27 06:28] LABS: Glucose,Whole Blood 152 mg/dL (70-110)
[2022-05-27 06:30] VITALS: RESP 16; TEMP 98.1
[2022-05-27 06:38] LABS: Basophils # (A) 0.1 k/uL (0-0.2); Basophils % (A) 1 %; Eosinophils # (A) 0.9 k/uL (0-0.7); Eosinophils % (A) 7 %; HCT 49.7 % (39.0-53.0); HGB 16.8 gm/dL (13.0-17.5); Lymphocytes # (A) 2.4 k/uL (1.0-4.8); Lymphocytes % (A) 18 %; MCHC 33.9 g/dL (31.0-37.0); MCV 85.4 fL (80.0-100.0); Mean Platelet Volume 7.6; Monocytes # (A) 0.8 k/uL (0-1.0); Monocytes % (A) 6 %; Neutrophils # (A) 8.7 k/uL (1.3-7.7); Neutrophils % (A) 66 %; Platelet Count 242 k/uL (150-450); RBC 5.82 m/uL (4.30-5.90); RDW 12.3 % (11.5-15.5); WBC 13.2 k/uL (3.8-10.6)
[2022-05-27 06:51] LABS: African American GFR (CKD) >90 (>60 ml/min/1.73 sqM); Anion Gap 9 mmol/L; Blood Urea Nitrogen 13 mg/dL (9-20); Calcium 9.4 mg/dL (8.4-10.2); Carbon Dioxide 24 mmol/L (22-30); Chloride 105 mmol/L (98-107); Glucose 153 mg/dL (74-99); Non-African American GFR(CKD) >90 (>60 ml/min/1.73 sqM); Potassium 4.4 mmol/L (3.5-5.1); Sodium 138 mmol/L (137-145)
[2022-05-27] MEDS ORDERED: fentaNYL (PF) 50 MCG/ML 2 ML AMP IV ONE (07:42)
[2022-05-27] MEDS ORDERED: MIDAZOLAM 2 MG/2 ML VIAL IV ONE (07:42)
[2022-05-27] MEDS ORDERED: LIDOCAINE 1% INJ 10MG/ML (30 ML VIAL-PF) SQ ONE (07:45)
[2022-05-27] MEDS ORDERED: IOPAMIDOL-250 100ML BTL INTRAARTER ONE ×2 (08:33→08:34)
[2022-05-27] MEDS ORDERED: CLOPIDOGREL 75 MG TAB PO ONE (08:40)
--- NOTE | 2022-05-27 09:18 | P.OP ---
Date of Procedure: 05/27/22 Preoperative Diagnosis: Bilateral common iliac artery stenosis with secondary lifestyle limiting lower extremity claudication. Postoperative Diagnosis: Same. Procedure(s) Performed: #1: Ultrasound-guided cannulation common femoral artery bilaterally. #2: Abdominal aortogram. #3: Bilateral common iliac artery balloon dilation. #4: Placement of the BX 8 x 39 mm stent bilateral common iliac arteries. Implants: Bilateral common iliac artery covered stents. Anesthesia: local (With 50 g of fentanyl and 1 mg of Versed for moderate conscious sedation purposes.) Surgeon: Den Ch Estimated Blood Loss (ml): 15 Urine output (ml): 0 Pathology: none sent Condition: stable Disposition: no change Indications for Procedure: Patient is a 61-year-old male who presented to the office complaining of bilateral hip and calf claudication, more pronounced on the right than on the left. Physical examination revealed palpable femoral pulses. Arterial Doppler study was performed which demonstrated findings consistent with aortoiliac occlusive disease. CT angiography was performed which demonstrated bilateral common iliac artery stenosis, more pronounced on the right than on the left. Because the above findings the patient is offered percutaneous intervention. The procedure, risk and benefits were discussed. All questions were answered to patient's satisfaction. Consent form was signed. Description of Procedure: Patient was brought to the catheterization laboratory. Both groins were sterilely prepped and draped in usual manner. The patient did receive 1 mg of Versed and 50 g of fentanyl for moderate conscious sedation purposes. Utilizing ultrasound the right common femoral artery was identified. 1% Xylocaine was utilized for local anesthesia tissues overlying the right common femoral artery. Through this anesthetized area and with the aid of ultrasound a multipurpose needle was utilized cannulate the artery. Once cannulated Softip guidewire was advanced into the artery. The needle was withdrawn and a 6-[place] sheath was placed. Similar procedure was eventually performed on the contralateral side. Guidewire was advanced into the abdominal aorta over which Omni flush catheter was advanced. The guidewire was withdrawn and abdominal and pelvic imaging were then performed. Findings of angiogram: There is single renal arteries bilaterally without evidence of hemodynamically significant stenosis. The abdominal aorta itself is normally patent. Mesenteric vessels as visualized are patent and unremarkable. Bilaterally the common iliac arteries are somewhat calcified and are 60-80% stenosed. The external and internal iliac segments are otherwise unremarkable. Was decided to perform balloon angioplasty of both lesions. After the second sheath was placed on the contralateral side and guidewire was advanced into the aorta 7 x 40 mm balloon angioplasty catheters were deployed in the sitting balloon technique. Completion angiogram demonstrated less than optimal resolution of the stenosis and asked such was felt the patient would benefit by placement of covered stents. A VBX stent measuring 8 x 39 mm was selected and under roadmapping was positioned in the common iliac artery. Similar stent and procedure was performed from the contralateral side. The stents were then deployed in kissing balloon technique. Completion angiogram demonstrated compl ete essentially complete resolution of all previously identified stenosis with free flow of blood distally. With the above findings noted guidewires and sheaths were withdrawn and the puncture wounds were closed with Angio-Seal device. Patient tolerated the procedure well and was taken to the outpatient surgical area in satisfactory and stable condition. Palpable posterior tibial pulses are noted at the completion of the case bilaterally. Plan - Discharge Summary Discharge Rx Participant: Yes New Discharge Prescriptions: No Action [place]-3 Fatty Acids/Fish Oil [Fish Oil 1,000 mg Softgel] 1 cap PO BID Cholecalciferol [Vitamin D3 (25 Mcg = 1000 Iu)] 25 mcg PO DAILY Isosorbide Mononitrate ER [Imdur] 30 mg PO DAILY #30 tab Mesalamine 800 mg PO TID traZODone HCL 150 mg PO HS lisinopriL [Zestril] 5 mg PO HS Aspirin [Adult Low Dose Aspirin EC] 81 mg PO DAILY Atorvastatin [Lipitor] 40 mg PO DAILY Empagliflozin/Metformin HCl [Synjardy 12.5-500 mg Tablet] 1 tab PO DAILY QUEtiapine [SEROquel] 100 mg PO HS Acetaminophen-Codeine 300-30mg [Tylenol w/codeine #3] 1 tab PO Q6H PRN PRN Reason: Pain Insulin Aspart [NovoLOG Flexpen] See Protocol SQ TID-W/MEALS PRN PRN Reason: HIGH BLOOD SUGAR Insulin Glargine,Hum.rec.anlog [Basaglar Kwikpen U-100] 10 unit SQ QAM Discharge Medication List Aspirin [Adult Low Dose Aspirin EC] 81 mg PO DAILY 04/03/21 [History] Atorvastatin [Lipitor] 40 mg PO DAILY 04/03/21 [History] Cholecalciferol [Vitamin D3 (25 Mcg = 1000 Iu)] 25 mcg PO DAILY 04/03/21 [History] [place]-3 Fatty Acids/Fish Oil [Fish Oil 1,000 mg Softgel] 1 cap PO BID 04/03/21 [History] lisinopriL [Zestril] 5 mg PO HS 04/03/21 [History] traZODone HCL 150 mg PO HS 04/03/21 [History] Isosorbide Mononitrate ER [Imdur] 30 mg PO DAILY #30 tab 04/06/21 [Rx] Empagliflozin/Metformin HCl [Synjardy 12.5-500 mg Tablet] 1 tab PO DAILY 07/21/21 [History] Acetaminophen-Codeine 300-30mg [Tylenol w/codeine #3] 1 tab PO Q6H PRN 09/28/21 [History] Insulin Aspart [NovoLOG Flexpen] See Protocol SQ TID-W/MEALS PRN 09/28/21 [History] Mesalamine 800 mg PO TID 09/28/21 [History] QUEtiapine [SEROquel] 100 mg PO HS 09/28/21 [History] Insulin Glargine,Hum.rec.anlog [Basaglar Kwikpen U-100] 10 unit SQ QAM 05/24/22 [History]
[2022-05-27 11:23] VITALS: BP 117/72; PULSE 64
[2022-05-27] MEDS ORDERED: ACETAMINOPHEN TAB 500 MG TAB PO ONE (11:25)
--- NOTE | 2022-05-27 12:12 | IR ---
EXAMINATION TYPE: IR stent intravas non coronary DATE OF EXAM: 05/27/2022 CLINICAL HISTORY: Leg pain TECHNIQUE: Fluoroscopy. COMPARISON: None. FINDINGS: Fluoroscopic guidance was provided during procedure performed by the referring physician. A total of 2.3 minutes of fluoroscopic time was utilized during the procedure. Please see separate r eport for procedural details.. IMPRESSION: As Above.
== END 2022-05-27 13:18 | disposition home or self-care (01) ==
LOC: CATHCVL 05:49
PROVIDERS: ATTEND Surgery
DX: I73.9 Peripheral vascular disease, unspecified (principal); I25.10 Atherosclerotic heart disease of native coronary artery without angina pectoris; E78.5 Hyperlipidemia, unspecified; Z79.899 Other long term (current) drug therapy; Z79.82 Long term (current) use of aspirin
CPT/HCPCS: 37221; 75625; 80048; 85025; C1894 ×2; C1769 ×4; C1760; C1725 ×2; C1874; J2250; J2001; J3010; Q9966

== ENCOUNTER → 2023-08-01 | Outpatient (CLI) | payer MEDICARE, OTHER ==
--- NOTE | 2023-08-01 08:37 | CTL ---
EXAMINATION TYPE: CT Low Dose Lung DATE OF EXAM ORDERED: 08/01/2023 COMPARISON: None HISTORY: . Low Dose CT Lung Screening CT DLP: [address] CTDI: 1.99 mGy IV CONTRAST USED: None. SCREENING VISIT: First visit TECHNIQUE: Low dose computed tomography scan was performed through the chest at 1 millimeter thick se ctions and reconstructed images in the coronal plane at [address] DIAGNOSTIC QUALITY: Satisfactory FINDINGS: LUNG NODULES: Not presentLeft lung: no nodules identified.Right lung: no nodules identified. LUNGS: COPD: Severity: None Fibrosis: Severity:None Lymph nodes: None Other findings: None RIGHT PLEURAL SPACE: Effusion: None Calcification: None Thickening: None Pneumothorax: None LEFT PLEURAL SPACE: Effusion: None Calcification: None Thickening: None Pneumothorax: None HEART: Heart Size: Mildly enlarged Coronary calcification: Mild Pericardial effusion: None OTHER FINDINGS: Upper abdomen: No significant abnormality Bony thorax: Degenerative changes Supraclavicular region: No significant abnormalityOther: No significant abnormalityI IMPRESSION: Benign FOLLOW UP CT CHEST RECOMMENDATION: Follow-up screening in one year CT LUNG RAD: LUNG RAD CATEGORY 1 negative
== END | disposition home or self-care (01) ==
LOC: RADCTMAIN 08:04
PROVIDERS: ATTEND Family Medicine
DX: Z12.2 Encounter for screening for malignant neoplasm of respiratory organs (principal); I25.10 Atherosclerotic heart disease of native coronary artery without angina pectoris; Z87.891 Personal history of nicotine dependence
CPT/HCPCS: 71271

== ENCOUNTER → 2023-08-19 | Day surgery (SDC) | payer MEDICARE, OTHER ==
[2023-08-17 11:16] VITALS: BMI 27.2
[~2023-08-19] MED LIST changes: +PROPOFOL 10 MG/ML 20 ML VIAL IV ONE
[2023-08-19] MEDS: LACTATED RINGERS 1,000 ML IV ONE (06:50)
[2023-08-19 07:15] LABS: Glucose,Whole Blood 112 mg/dL (70-110)
[2023-08-19 07:41] VITALS: TEMP 97.6
--- NOTE | 2023-08-19 08:01 | P.PCN ---
Date of Procedure: 08/19/23 Procedure(s) Performed: BRIEF HISTORY: Patient is a 62-year-old pleasant white male scheduled for an elective colonoscopy as a part of surveillance of long-standing history of ulcerative colitis diagnosed in 2003. He has been in clinical remission. PROCEDURE PERFORMED: Colonoscopy with random biopsy. PREOPERATIVE DIAGNOSIS: History of ulcerative colitis. IV sedation per Anesthesia. PROCEDURE: After informed consent was obtained, the patient, was brought into the endoscopy unit. IV sedation was administered by Anesthesia under continuous monitoring. Digital rectal examination was normal. Initially the Olympus CF-160 flexible video colonoscope was then inserted in the rectum, gradually advanced into the cecum without any difficulty. Careful examination was performed as the scope was gradually being withdrawn. Ileocecal valve and the appendiceal orifice were visualized and appeared normal. Prep was excellent. Mucosa of the cecum, ascending colon, transverse colon, descending colon, sigmoid colon, and rectum appeared normal.Scattered pseudopolyps noted in the left colon. Random biopsies were done from the cecum to rectum at every 10 cm. Retroflexion was performed in the rectum and no lesions were seen. The patient tolerated the procedure well. IMPRESSION: Normal-appearing colon from rectum to cecum with no emesis of active colitis or colorectal neoplasia. Scattered pseudopolyps noted in the left colon. RECOMMENDATIONS: Findings of this examination were discussed with the patient as well as his family. He was advised to follow with the biopsy results. If the biopsy does not have any evidence of dysplasia, he can have a repeat colonoscopy every 2 years.
[2023-08-19 08:21] LABS: Glucose,Whole Blood 100 mg/dL (70-110)
[2023-08-19 08:28] VITALS: BP 124/80; RESP 14
[2023-08-19 08:29] VITALS: PULSE 78
== END ==
LOC: ORWHC2ENDO 06:27
PROVIDERS: ATTEND Internal Medicine Gastroenterology
DX: D12.3 Benign neoplasm of transverse colon (principal); K51.90 Ulcerative colitis, unspecified, without complications; I10 Essential (primary) hypertension; E78.5 Hyperlipidemia, unspecified; I25.10 Atherosclerotic heart disease of native coronary artery without angina pectoris; I73.9 Peripheral vascular disease, unspecified; Z87.891 Personal history of nicotine dependence; Z79.02 Long term (current) use of antithrombotics/antiplatelets; Z95.5 Presence of coronary angioplasty implant and graft; Z79.899 Other long term (current) drug therapy
CPT/HCPCS: 88305; 45380; J2704

== ENCOUNTER → 2023-12-12 | Outpatient (CLI) | payer MEDICARE, OTHER ==
--- NOTE | 2024-01-08 09:38 | CT ---
Site ID [facility] Patient Dale Sloan J ID [id number] Age/Gender: 63Y, M Order # N/A Procedure CT angio abd aorta w/Runoff Date 12/12/2023 10:36:00 AM EXAMINATION TYPE: CT angio tho/abd W Run Off CT DLP: 1941.70 mGycm, Automated exposure control for dose reduction was used. DATE OF EXAM: 12/21/2023 12:10 PM COMPARISON: 04/03/2022 CLINICAL INDICATION: Male, 63 year old with history of atherosclerosis of the [place] arteries of extr emities with intermittent claudication bilateral legs; TECHNIQUE: Contiguous axial scanning of the abdomen and pelvis performed without and with IV Contrast , patient injected with 120 mL of Isovue 370. Additional bilateral lower extremity runoff is performe d. Coronal/sagittal reconstructions performed. Automated exposure control for dose reduction was used . FINDINGS: Median sternotomy wires are present. Post-CABG changes. Prominent xiphoid process. Heart is normal si ze without pericardial effusion. Dependent atelectasis in the visualized lower lungs. No pleural effu filiberto. Liver mildly enlarged measuring 18.0 cm. Arterial phase imaging shows no discrete abnormality. Small layering gallstones are noted. No abnormal gallbladder distention. Adrenal glands, left kidney, spleen with small hilar splenule, and pancreas within normal limits. Tin y cortical hypodensity in the lateral right kidney suggestive of a cyst again. No dilated small bowel, free fluid, or free air. Tiny fatty umbilical hernia. No mesenteric or retrop eritoneal lymphadenopathy. Scattered mild to moderate stool. No pericolic inflammatory change. Bladder partially distended. Prostate gland measures 4.9 cm wide. Slightly patulous fat filled bilate ral inguinal canals. No abnormal fluid collection in the pelvis or pelvic lymphadenopathy. VASCULATURE: Celiac axis. Mild noncalcified plaque without significant stenosis. Increased multifocal calcified pl aque within the SMA with at least mild stenosis. The bilateral renal arteries are patent. Mild athero sclerotic plaque at the origin of the right renal artery. Mild stenosis. Patent HARDIK. Moderate atherosclerotic calcification and plaque within the infrarenal abdominal aorta. Postsurgical changes with bilateral common iliac artery stents which are patent. There is atheroscler otic plaque within the bilateral common iliac arteries around the stents. RIGHT: Segmental moderate stenosis right common and external iliac arteries. Severe focal stenosis internal iliac artery. Additional similar scattered moderate atherosclerotic plaque and calcification involving the common a nd superficial femoral arteries. Profunda femoral arteries are patent. Interval patent stent in the distal SFA at site of prior short segment occlusion. Popliteal artery is patent. Normal takeoff of the anterior tibial artery. Tibioperoneal trunk is patent. Moderate atherosclerotic changes throughout the trifurcation vessels. Anterior tibial artery becomes diminutive and then is n o longer seen at the distal third leg level. Peroneal artery becomes diminutive distally above the ankle and is no longer seen at the ankle. Runof f via the posterior tibial artery. LEFT: Segmental moderate stenosis left common and external iliac arteries. Severe focal stenosis internal i liac artery. Moderate atherosclerotic calcifications within the common and superficial femoral arteries. Focal severe stenosis left SFA at the upper third thigh level again, axial images 297 series 8. Pop[place] teal artery is patent. Normal takeoff of the anterior tibial artery. Moderate atherosclerotic changes throughout the tibial peroneal trunk and trifurcation vessels. The peroneal artery is seen to the distal third leg level. T here is runoff via the anterior tibial and posterior tibial arteries. BONES: Hypertrophic facet arthropathy. Degenerative grade 1 retrolisthesis L1-L2, L2- L3, L3-L4. Either accessory ossicle or old fragmentation lateral aspect of the right patella. Small Wong's cyst on the left. Previous right hip total arthroplasty. Mild left hip OA. Unchanged possible early avasc ular necrosis anterior weightbearing aspect of the left femoral head. IMPRESSION: RIGHT: 1. Postsurgical changes with patent stent involving the right common iliac artery. 2. Similar moderate scattered atherosclerotic changes throughout the right lower extremity. Postsurgi ambrosio change with patent stent involving distal SFA at the level of the adductor hiatus. 3. Anterior tibial artery again becomes diminutive and no longer seen at the distal third leg. Perone al artery is no longer seen at the level of the ankle. Runoff via posterior tibial artery. LEFT: 4. Postsurgical changes with patent stent involving the left common iliac artery. 5. Similar moderate scattered atherosclerotic changes throughout the left lower extremity. 6. Similar severe focal severe stenosis of the upper third left SFA. 7. Peroneal artery is seen to the distal third lumbar level with runoff via the anterior and posterio r tibial arteries. 8. Increased multifocal mild stenosis of the SMA. 9. Cholelithiasis.
== END | disposition home or self-care (01) ==
LOC: RADCTMAIN 08:35
PROVIDERS: ATTEND Surgery
DX: I70.213 Atherosclerosis of native arteries of extremities with intermittent claudication, bilateral legs (principal); I70.0 Atherosclerosis of aorta; K55.1 Chronic vascular disorders of intestine; K80.20 Calculus of gallbladder without cholecystitis without obstruction
CPT/HCPCS: 75635; Q9967

== ENCOUNTER 2024-02-09 11:28 | Day surgery (SDC) | payer MEDICARE, OTHER ==
[2024-02-08 10:51] VITALS: BMI 26.5
[~2024-02-09 11:28] MED LIST changes: +ALPRAZolam 0.25 MG TAB PO PRN; +ALPRAZolam 0.5 MG TAB PO PRN; +HEPARIN SODIUM,PORCINE (1 ML) 2,500 UNIT in SODIUM CHLORIDE 0.9% 250 ML IRRIGATION PRN; -LACTATED RINGERS 1,000 ML IV SCH; -PROPOFOL 10 MG/ML 20 ML VIAL IV ONE; +ZOLPIDEM 5 MG TAB PO PRN
[2024-02-09] MEDS: EMPTY BAG 1 BAG with SODIUM CHLORIDE 0.9% 1,000 ML IV SCH (12:31)
[2024-02-09] MEDS: IV FLUID CONTINUATION 1,000 ML IV ONE (12:34)
[2024-02-09 12:42] LABS: Glucose,Whole Blood 153 mg/dL (70-110)
[2024-02-09 12:45] VITALS: RESP 16; TEMP 97.7
[2024-02-09] MEDS: MIDAZOLAM 2 MG/2 ML VIAL IVP ONE (14:59)
[2024-02-09] MEDS: fentaNYL (PF) 50 MCG/1 ML VIAL IVP ONE (14:59)
[2024-02-09] MEDS: LIDOCAINE 1% INJ 10MG/ML (20 ML MDV) SQ ONE (15:02)
[2024-02-09] MEDS: IOPAMIDOL-250 100ML BTL INTRAARTER ONE (15:25)
[2024-02-09] MEDS: HEPARIN SODIUM,PORCINE 10,000 UNIT in SODIUM CHLORIDE 0.9% 1,000 ML IRRIGATION PRN (15:26)
--- NOTE | 2024-02-09 15:46 | P.OP ---
Date of Procedure: 02/09/24 Preoperative Diagnosis: 1: Left superficial femoral artery stenosis versus subtotal occlusion with secondary lifestyle limiting left calf claudication. Postoperative Diagnosis: High-grade focal subtotal occlusion left superficial femoral artery at the mid SFA level. Procedure(s) Performed: 1: Ultrasound-guided cannulation right superficial femoral artery. 2: Abdominal aortogram with iliac runoffs. 3: Selective catheterization left superficial femoral artery. 4: Left femoral angiogram. 5: Balloon dilation left superficial femoral artery with drug-eluting balloon. Anesthesia: local (1% Xylocaine. 50 mcg of fentanyl with 2 mg of Versed administered intravenously for moderate conscious sedation purposes.) Surgeon: Den Ch Estimated Blood Loss (ml): 10 Urine output (ml): 0 Pathology: none sent Condition: stable Disposition: no change Indications for Procedure: Patient is a 63-year-old male with a history of peripheral vascular disease having undergone bilateral iliac artery balloon dilation and stenting. He Sarahi presented with recurrent left calf claudication. Physical examination revealed a femoral pulse to be intact on the left while the popliteal and pedal pulses were absent. CT angiogram demonstrated either a high-grade/subtotal occlusion or totally occluded short segment of the left superficial femoral artery. Because of the patient's symptoms and the anticipated anatomy was felt the patient was a good candidate for endovascular approach. The procedure, risk and benefits were discussed. All questions were answered patient's satisfaction. Consent form was signed. Description of Procedure: Patient was brought to the cardiac catheterization laboratory, and right groins were sterilely prepped draped in usual manner. Patient received 2 mg of Versed and 50 mcg of fentanyl for moderate conscious sedation purposes. Utilizing ultrasound the right common femoral artery was identified. 1% Xylocaine was utilized for local anesthesia tissues overlying the common femoral artery. Through this anesthetized area and with the aid of ultrasound a multipurpose needle was utilized to cannulate the artery. Once cannulated a soft tipped guidewire was advanced into the artery. The needle was withdrawn and a 5 Ecuadorean sheath was placed. Omni Flush catheter and guidewire combination were advanced to the L1-L2 interspace. The guidewire was withdrawn and abdominal aortogram was performed. Subsequently the catheter was utilized to cannulate the left common iliac artery. Guidewire was advanced into the superficial femoral artery and the Omni Flush catheter was exchanged for an angled glide catheter. The glide catheter was positioned to in the distal external iliac artery and the guidewire was withdrawn. Left femoral angiogram was performed. Findings: Abdominal aorta as well as bilateral common, external and internal iliac segments appeared widely patent. The previously placed stents remained fully functional. The left common and profundus femoris arterial segments were widely patent. The left superficial femoral artery demonstrated a very focal and high- grade/subtotal occlusion at the mid thigh level. The distal SFA, popliteal and tibial arterial segments were normally patent. Intervention: A glide advantage wire was advanced through the sheath and under roadmap guidance was advanced past the area of stenosis. A 4 mm x 60 mm drug- eluting balloon catheter system was selected and utilized to balloon dilate the highly stenotic/subtotal occluded segment. Completion angiogram demonstrated the artery to be widely patent with no evidence of dissection or other pa thology. Flow was normal in the distal SFA, popliteal and tibial artery segments. With the above findings noted the balloon catheter was withdrawn as was the 5 Ecuadorean sheath and an Angio-Seal device was utilized to close the puncture site. Palpable dorsalis pedis pulses were intact bilaterally at the completion of the procedure. Total moderate conscious sedation time: 26 minutes. Total fluoroscopy time: 3.9 minutes. Total contrast volume utilized: 40 mL of Isovue 270. Plan - Discharge Summary Discharge Rx Participant: No New Discharge Prescriptions: No Action [place]-3 Fatty Acids/Fish Oil [Fish Oil 1,000 mg Softgel] 1 cap PO BID Cholecalciferol [Vitamin D3 (25 Mcg = 1000 Iu)] 25 mcg PO DAILY Isosorbide Mononitrate ER [Imdur] 30 mg PO DAILY #30 tab Mesalamine [Asacol Hd] 800 mg PO TID traZODone HCL 150 mg PO HS lisinopriL [Zestril] 5 mg PO HS Aspirin [Adult Low Dose Aspirin EC] 81 mg PO DAILY Atorvastatin [Lipitor] 40 mg PO DAILY Empagliflozin/Metformin HCl [Synjardy 12.5-500 mg Tablet] 2 tab PO DAILY QUEtiapine [SEROquel] 100 mg PO HS Acetaminophen-Codeine 300-30mg [Tylenol w/codeine #3] 1 tab PO Q6H PRN PRN Reason: Pain Insulin Glargine,Hum.rec.anlog [Basaglar Kwikpen U-100] 30 unit SQ QAM Clopidogrel Bisulfate [Plavix] 75 mg PO DAILY #30 tab Discharge Medication List Aspirin [Adult Low Dose Aspirin EC] 81 mg PO DAILY 04/03/21 [History] Atorvastatin [Lipitor] 40 mg PO DAILY 04/03/21 [History] Cholecalciferol [Vitamin D3 (25 Mcg = 1000 Iu)] 25 mcg PO DAILY 04/03/21 [History] [place]-3 Fatty Acids/Fish Oil [Fish Oil 1,000 mg Softgel] 1 cap PO BID 04/03/21 [History] lisinopriL [Zestril] 5 mg PO HS 04/03/21 [History] traZODone HCL 150 mg PO HS 04/03/21 [History] Isosorbide Mononitrate ER [Imdur] 30 mg PO DAILY #30 tab 04/06/21 [Rx] Empagliflozin/Metformin HCl [Synjardy 12.5-500 mg Tablet] 2 tab PO DAILY 07/21/21 [History] Acetaminophen-Codeine 300-30mg [Tylenol w/codeine #3] 1 tab PO Q6H PRN 09/28/21 [History] Mesalamine [Asacol Hd] 800 mg PO TID 09/28/21 [History] QUEtiapine [SEROquel] 100 mg PO HS 09/28/21 [History] Insulin Glargine,Hum.rec.anlog [Basaglar Kwikpen U-100] 30 unit SQ QAM 05/24/22 [History] Clopidogrel Bisulfate [Plavix] 75 mg PO DAILY #30 tab 05/27/22 [Rx] Follow up Appointment(s)/Referral(s): Den Ch DO [Doctor of Osteopathic Medicine] - 02/23/24 9:00 am (January AT 9:00 AM) Patient Instructions/Handouts: Moderate Sedation (DC), Fall Prevention (DC), Angiogram (DC) Activity/Diet/Wound Care/Special Instructions: NO DRIVING TODAY OR TOMORROW. OK TO SHOWER TOMORROW NO BATHS, SOAKING, SWIMMING FOR FOR THREE DAYS. SIGNS OF INFECTION IE: FEVER, RASH, UNUSUAL DRAINAGE, HARD KNOT OR LUMP CONTACT DOCTOR FOR FURTHER ORDERS. IF PUNCTURE SITE BLEEDS, APPLY FIRM DIRECT PRESSURE AND GO TO ER. DO NOT DRIVE SELF. MEDICATIONS DIRECTED BY DOCTOR. ACETAMINOPHEN FOR PAIN NEEDED/DIRECTED.
--- NOTE | 2024-02-09 16:41 | IR ---
EXAMINATION TYPE: IR angio abdominal w runoff DATE OF EXAM: 02/09/2024 FLUOROSCOPY LLE ANGIOGRAM, 3.9 MINS FLT, 0.044GY. 61 images submitted. [facility], , 02/09/2024 4:39 PM
[2024-02-09 17:35] VITALS: BP 122/68; PULSE 70
== END 2024-02-09 17:36 | disposition home or self-care (01) ==
LOC: CATHCVL 11:28
PROVIDERS: ATTEND Surgery
CPT/HCPCS: 37224; 75625; 75710; 76937

== ENCOUNTER 2024-10-10 05:34 | Day surgery (SDC) | payer MEDICARE, OTHER ==
[2024-10-10] MEDS ORDERED: ALPRAZolam 0.25 MG TAB PO PRN (06:33)
[2024-10-10] MEDS ORDERED: EMPTY BAG 1 BAG with SODIUM CHLORIDE 0.9% 1,000 ML IV SCH (06:33)
[2024-10-10] MEDS: IV FLUID CONTINUATION 1,000 ML IV ONE (06:37)
[2024-10-10 06:40] VITALS: RESP 16; TEMP 98.4
[2024-10-10 06:45] LABS: Glucose,Whole Blood 116 mg/dL (70-110)
[2024-10-10] MEDS: HEPARIN SODIUM (1,000 UNIT/ML) 1,000 UNIT in SODIUM CHLORIDE 0.9% 1,000 ML IRRIGATION ONE (07:42)
[2024-10-10 07:48] LABS: African American GFR (CKD) >90 (>60 ml/min/1.73 sqM); Anion Gap 6 mmol/L; Blood Urea Nitrogen 11 mg/dL (9-20); Calcium 9.5 mg/dL (8.4-10.2); Carbon Dioxide 27 mmol/L (22-30); Chloride 105 mmol/L (98-107); Glucose 110 mg/dL (74-99); Non-African American GFR(CKD) >90 (>60 ml/min/1.73 sqM); Sodium 138 mmol/L (137-145)
[2024-10-10] MEDS: MIDAZOLAM 2 MG/2 ML VIAL IVP ONE (07:48)
[2024-10-10] MEDS: fentaNYL (PF) 50 MCG/ML 2 ML AMP IVP ONE (07:48)
[2024-10-10] MEDS: LIDOCAINE 1% INJ 10MG/ML (20 ML MDV) SQ ONE (07:49)
[2024-10-10] MEDS: IOPAMIDOL-370 100ML BTL INJ ONE (08:12)
--- NOTE | 2024-10-10 08:53 | P.OP ---
Date of Procedure: 10/10/24 Preoperative Diagnosis: 1: Right femoral arterial occlusive disease with secondary right calf claudication described by the patient as lifestyle limiting. Postoperative Diagnosis: Same plus total occlusion of left SFA and significant right common femoral artery stenosis. Procedure(s) Performed: 1: Ultrasound-guided cannulation left common femoral artery. 2: Abdominal aortogram with iliac runoff. 3: Selective catheterization right common femoral artery. 4: Selective right femoral/popliteal/tibial angiography. Implants: None. Anesthesia: local (2% Xylocaine with moderate conscious sedation utilizing 2 mg of Versed and 50 mcg of fentanyl.) Surgeon: Den Ch Estimated Blood Loss (ml): 10 Urine output (ml): 0 Pathology: none sent Condition: stable Disposition: no change Indications for Procedure: Patient is a 64-year-old male history of previous tobacco use who presented with a chief complaint of right calf claudication occurring at approximately 50 feet of ambulation. Physical examination revealed a femoral pulse to be intact while the popliteal and pedal pulses were absent. Arterial Doppler study was performed which demonstrated a significantly decreased NADIA as well as findings consistent with femoral occlusive disease. Because of the patient's symptoms the patient wished intervention. We discussed imaging of CT angiogram versus catheter angiogram and the advantages of disadvantages of both approaches. It was felt that the patient would have a high likelihood of a lesion amenable to percutaneous intervention and it was decided to proceed with catheter angiogram. Description of Procedure: Patient was brought to the special procedure suite. Both groins were sterilely prepped and draped in the usual manner. Patient did receive 50 mcg of fentanyl as well as 2 mg of Versed administered intravenously for moderate conscious sedation purposes. Utilizing ultrasound the left common femoral artery was identified. 2% Xylocaine was utilized for local anesthesia the tissues overlying the left common femoral artery. Through this anesthetized area with the aid of ultrasound a multipurpose needle was utilized to cannulate the artery. Once cannulated soft-tipped guidewire was advanced into the artery. The needle was withdrawn and a 6 Faroese sheath was placed. A 5 Faroese pigtail catheter was then advanced over guidewire position at the L1-L2 interspace. Abdominal aortogram was performed. Subsequently the catheter was pulled down to the aortic bifurcation and imaging of the iliac vessels was then performed. The pigtail catheter was then manipulated across the aortic bifurcation and advanced to the level of common femoral artery. Femoral angiogram was performed on the right. Findings: Abdominal aortogram demonstrates single renal arteries bilaterally with no significant disease identified. The aorta is widely patent. The mesenteric vessels as visualized are unremarkable. Pelvic angiography: The left common and external iliac arteries are patent. The common is a stent positioned at the proximal segment which appears normally patent. The internal iliac is significantly diminutive in size. Approximately 50% stenosis of the external iliac artery is identified. Right iliac angiography demonstrates the common and external iliac segments to be normally patent. A stent is identified at the proximal common segment. The internal iliac artery is significantly diminutive in size. Right femoral angiography demonstrates the common to be patent however there is approximately 60% calcific stenosis of the femoral artery. The profundus is no rmally patent. The superficial femoral artery is occluded at its origin although does fill via collaterals at the level of the adductor canal. The distal SFA is significantly diseased however the popliteal artery appears widely patent. Tibial angiography demonstrates the anterior tibial artery to occlude shortly after its takeoff. The tibioperoneal trunk is normally patent as is the posterior tibial artery which crosses the ankle mortise. The peroneal artery is patent although demonstrates approximately 50% stenosis at the mid calf level. With the above findings noted the catheter was withdrawn as was the sheath and pressure was held at the puncture site until all evidence of bleeding ceased. Patient tolerated procedure well and was taken to the outpatient surgical area satisfactory stable. Total fluoroscopy time: 4.8 minutes. Total moderate conscious sedation time: 28 minutes. Total contrast volume utilized 75 mL of Isovue-370. Plan - Discharge Summary Discharge Rx Participant: No New Discharge Prescriptions: No Action [place]-3 Fatty Acids/Fish Oil [Fish Oil 1,000 mg Softgel] 1 cap PO BID Cholecalciferol [Vitamin D3 (25 Mcg = 1000 Iu)] 25 mcg PO DAILY Isosorbide Mononitrate ER [Imdur] 30 mg PO DAILY #30 tab Mesalamine [Asacol Hd] 800 mg PO TID traZODone HCL 150 mg PO HS lisinopriL [Zestril] 5 mg PO DAILY Aspirin [Adult Low Dose Aspirin EC] 81 mg PO DAILY Atorvastatin [Lipitor] 40 mg PO DAILY Empagliflozin/Metformin HCl [Synjardy 12.5-500 mg Tablet] 2 tab PO DAILY QUEtiapine [SEROquel] 100 mg PO HS Acetaminophen-Codeine 300-30mg [Tylenol w/codeine #3] 1 tab PO Q6H PRN PRN Reason: Pain Insulin Glargine,Hum.rec.anlog [Basaglar Kwikpen U-100] 30 unit SQ QAM Clopidogrel Bisulfate [Plavix] 75 mg PO DAILY #30 tab Discharge Medication List Aspirin [Adult Low Dose Aspirin EC] 81 mg PO DAILY 04/03/21 [History] Atorvastatin [Lipitor] 40 mg PO DAILY 04/03/21 [History] Cholecalciferol [Vitamin D3 (25 Mcg = 1000 Iu)] 25 mcg PO DAILY 04/03/21 [History] [place]-3 Fatty Acids/Fish Oil [Fish Oil 1,000 mg Softgel] 1 cap PO BID 04/03/21 [History] lisinopriL [Zestril] 5 mg PO DAILY 04/03/21 [History] traZODone HCL 150 mg PO HS 04/03/21 [History] Isosorbide Mononitrate ER [Imdur] 30 mg PO DAILY #30 tab 04/06/21 [Rx] Empagliflozin/Metformin HCl [Synjardy 12.5-500 mg Tablet] 2 tab PO DAILY 07/21/21 [History] Acetaminophen-Codeine 300-30mg [Tylenol w/codeine #3] 1 tab PO Q6H PRN 09/28/21 [History] Mesalamine [Asacol Hd] 800 mg PO TID 09/28/21 [History] QUEtiapine [SEROquel] 100 mg PO HS 09/28/21 [History] Insulin Glargine,Hum.rec.anlog [Basaglar Kwikpen U-100] 30 unit SQ QAM 05/24/22 [History] Clopidogrel Bisulfate [Plavix] 75 mg PO DAILY #30 tab 05/27/22 [Rx] Follow up Appointment(s)/Referral(s): Den Ch DO [Doctor of Osteopathic Medicine] - 2 Weeks Patient Instructions/Handouts: Moderate Sedation (DC), Angiography (DC) Activity/Diet/Wound Care/Special Instructions: NO METFORMIN FOR TWO DAYS. OK TO SHOWER TOMORROW. NO BATHS TUBS SWIMMING FOR 3 DAYS TO AVOID RISK OF INFECTION. NO DRIVING TODAY OR TOMORROW. AVOID STAIRS, PUSHING PULLING LIFING MORE THAN 10LBS FOR 3 DAYS TO AVOID RISK OF BLEEDING. IF PUNCTURE SITE BLEEDS, APPLY FIRM PRESSURE AND GO TO ER. DO NOT DRIVE SELF. MONITOR FOR SIGNS OF INFECTION IE: FEVER RASH UNUSUAL DRAINAG HARD KNOT OR LUMP CONTACT DRAlber TO BE EVALUATED OR GO TO ER. MEDS PER DR CH. FOLLOW UP DIRECTED.
--- NOTE | 2024-10-10 10:16 | IR ---
EXAMINATION TYPE: IR angio abdominal w runoff DATE OF EXAM: 10/10/2024 10:11 AM COMPARISON: Pre Operative Images if available both CT/MRI or plain film CLINICAL INDICATION: Male, 64 years old with history of RIGHT LEG PAIN. FL TIME 4.8 MIN. 52.75GYM 2.; TECHNIQUE: IR angio abdominal w runoff, multiple fluoroscopic images provided for procedure. DAP: 52.75GYM FINDINGS: IMPRESSION: 1. Report was generated for administrative purposes only. 2. Please see the operative/procedural note for further details. [facility], , 10/10/2024 10:14 AM
[2024-10-10 11:43] VITALS: BP 124/70
[2024-10-10 14:15] VITALS: PULSE 52
== END 2024-10-10 14:00 | disposition home or self-care (01) ==
LOC: CATHCVL 05:34
PROVIDERS: ATTEND Surgery
DX: I70.201 Unspecified atherosclerosis of native arteries of extremities, right leg (principal); I70.92 Chronic total occlusion of artery of the extremities; I74.3 Embolism and thrombosis of arteries of the lower extremities; I25.10 Atherosclerotic heart disease of native coronary artery without angina pectoris; I10 Essential (primary) hypertension; D75.1 Secondary polycythemia; D72.829 Elevated white blood cell count, unspecified; E11.9 Type 2 diabetes mellitus without complications; E78.5 Hyperlipidemia, unspecified; M12.9 Arthropathy, unspecified; Z87.891 Personal history of nicotine dependence; Z79.82 Long term (current) use of aspirin; Z79.02 Long term (current) use of antithrombotics/antiplatelets; Z79.899 Other long term (current) drug therapy
CPT/HCPCS: 36247; 75625; 75710; 80048; 99152; 99153; C1894; C1769 ×5; C1760; J2250; J2003; J3010; J1644; Q9967